=== PATIENT | female | born 1975 | race Asian ===

== ENCOUNTER 2020-10-03 10:59 | Outpatient (REF) | payer OTHER, MEDICAID, SELFPAY ==
[2020-10-03 14:00] LABS: MANUAL DIFF FLAG NO
[2020-10-03 14:19] LABS: Basophils Absolute Auto 0.1 X10*3/uL (0.0-0.2); Basophils Percent Auto 1.1 % (0-2); Eosinophils Absolute Auto 0.5 X10*3/uL (0.0-0.4); Eosinophils Percent Auto 9.8 % (0-4); Hematocrit 42.2 % (37-47); Hemoglobin 14.1 g/dl (12.0-16.0); Imm Gran Abs Auto 0.01 X10*3/uL (0.00-0.03); Imm Gran Pct Auto 0.2 % (0.0-0.4); Lymphocytes Absolute Auto 1.7 X10*3/uL (1.2-4.9); Lymphocytes Percent Auto 31.2 % (20-40); Mean Corpuscular HGB Conc 33.4 g/dl (31.0-35.0); Mean Corpuscular Hemoglobin 30.1 pg (27.0-33.0); Mean Platelet Volume 10.4 fL (9.4-12.3); Monocytes Absolute Auto 0.3 X10*3/uL (0.1-1.2); Monocytes Percent Auto 5.3 % (2-11); Neutrophils Absolute Auto 2.9 X10*3/uL (2.0-8.3); Neutrophils Percent Auto 52.4 % (45-73); Platelet Count 229 X10*3/uL (160-400); Red Blood Count 4.69 X10*6/uL (4.20-5.50); Red Cell Distribution Width 11.9 % (11.0-16.0); White Blood Count 5.5 X10*3/uL (4.8-10.8)
[2020-10-03 14:23] LABS: Alanine Aminotransferase 10 U/L (0-31); Anion Gap 11 (12-20); Aspartate Amino Transferase 13 U/L (5-31); Blood Urea Nitrogen 8 mg/dL (9-16); Carbon Dioxide 26 mmol/L (22-29); Chloride 105 mmol/L (96-108); Cholesterol 217 mg/dL; Estimated Glomerular Filt Rate > 60; Glucose Fasting 89 mg/dL (60-99); HDL Cholesterol 62 mg/dL; LDL Cholesterol Calculated 125 mg/dl; Potassium 4.3 mmol/L (3.3-5.1); Sodium 138 mmol/L (135-145); Triglycerides 153 mg/dL
[2020-10-03 14:44] LABS: Vitamin D 25-OH Total 14.7 ng/mL (>30)
== END 2020-10-03 11:00 | disposition home or self-care (01) ==
LOC: HO.HMGCLDS 10:59
PROVIDERS: PCP Internal Medicine; Visit Provider Internal Medicine
DX: Z00.01 Encounter for general adult medical examination with abnormal findings (principal); I10 Essential (primary) hypertension; R53.83 Other fatigue; N94.6 Dysmenorrhea, unspecified
CPT/HCPCS: 36415; 80048; 80061; 82306; 84443; 84450; 84460; 85025

== ENCOUNTER 2020-11-22 14:41 | Outpatient (REF) | payer OTHER, MEDICAID, SELFPAY ==
--- NOTE | ~2020-11-22 | MM_ITS ---
EXAMINATION: MM SCREENING DIGITAL BREAST TOMOSYNTHESIS, BILATERAL CLINICAL INFORMATION: Screening. Asymptomatic. The lifetime risk of breast cancer based on the Tyrer-Cuzick Model is 11%. COMPARISON: Mammography: 11/17/2017 TECHNIQUE: Digital breast tomosynthesis is performed in both the craniocaudal and mediolateral oblique views along with computer-aided detection (CAD). Synthesized 2D images are generated from the tomosynthesis. Additional views are provided: Bilateral CC. FINDINGS: The breasts are heterogeneously dense, which may obscure small masses (ACR BI-RADS breast composition Category c). There are no significant masses, abnormal calcifications, or other abnormalities. Parenchymal pattern is similar to prior study. The axilla and skin contours are unremarkable. MM/MM tomosynthesis screening BI IMPRESSION: No mammographic evidence of malignancy. ASSESSMENT: BI-RADS 1: Negative RECOMMENDATION: Routine annual mammography screening. This patient's information was entered into a reminder system with a target due date for their next mammogram.
== END 2020-11-22 14:42 | disposition home or self-care (01) ==
LOC: HO.MAMMO 14:41
PROVIDERS: Visit Provider Internal Medicine
DX: Z12.31 Encounter for screening mammogram for malignant neoplasm of breast (principal)
CPT/HCPCS: 77063; 77067

== ENCOUNTER 2021-11-23 15:17 | Outpatient (REF) | payer OTHER, MEDICAID, SELFPAY ==
--- NOTE | ~2021-11-23 | MM_ITS ---
EXAMINATION: MM SCREENING DIGITAL BREAST TOMOSYNTHESIS, BILATERAL CLINICAL INFORMATION: Screening. Asymptomatic. The lifetime risk of breast cancer based on the Tyrer-Cuzick Model is 11%. COMPARISON: Mammography: 11/22/2020, 11/05/2017 TECHNIQUE: Digital breast tomosynthesis is performed in both the craniocaudal and mediolateral oblique views along with computer-aided detection (CAD). Synthesized 2D images are generated from the tomosynthesis. FINDINGS: The breasts are heterogeneously dense, which may obscure small masses (ACR BI-RADS breast composition Category c). Breast tissue composition borders on average fibroglandular. Parenchymal pattern is similar to prior studies. No developing density or architectural abnormality. There are no significant masses, abnormal calcifications, or other abnormalities. The axilla and skin contours are unremarkable. MM/MM tomosynthesis screening BI IMPRESSION: No mammographic evidence of malignancy. ASSESSMENT: BI-RADS 1: Negative RECOMMENDATION: Routine annual mammography screening. This patient's information was entered into a reminder system with a target due date for their next mammogram.
== END 2021-11-23 15:18 | disposition home or self-care (01) ==
LOC: HO.MAMMO 15:17
PROVIDERS: Visit Provider Internal Medicine
DX: Z12.31 Encounter for screening mammogram for malignant neoplasm of breast (principal)
CPT/HCPCS: 77063; 77067

== ENCOUNTER 2021-12-07 07:47 | Outpatient (REF) | payer OTHER, MEDICAID, SELFPAY ==
[2021-12-07 11:28] LABS: MANUAL DIFF FLAG NO
[2021-12-07 11:47] LABS: Basophils Absolute Auto 0.1 X10*3/uL (0.0-0.2); Basophils Percent Auto 1.1 % (0-2); Eosinophils Absolute Auto 0.7 X10*3/uL (0.0-0.4); Eosinophils Percent Auto 12.7 % (0-4); Hematocrit 43.8 % (37.0-47.0); Hemoglobin 14.7 g/dl (12.0-16.0); Imm Gran Abs Auto 0.01 X10*3/uL (0.00-0.03); Imm Gran Pct Auto 0.2 % (0.0-0.4); Lymphocytes Absolute Auto 1.8 X10*3/uL (1.2-4.9); Lymphocytes Percent Auto 32.1 % (20-40); Mean Corpuscular HGB Conc 33.6 g/dl (31.0-35.0); Mean Corpuscular Hemoglobin 29.6 pg (27.0-33.0); Mean Corpuscular Volume 88.1 fL (80.0-98.0); Mean Platelet Volume 10.8 fL (9.4-12.3); Monocytes Absolute Auto 0.3 X10*3/uL (0.1-1.2); Neutrophils Absolute Auto 2.7 x10*3/uL (2.0-8.3); Neutrophils Percent Auto 47.9 % (45-73); Platelet Count 232 X10*3/uL (160-400); Red Blood Count 4.97 X10*6/uL (4.20-5.50); Red Cell Distribution Width 12.2 % (11.0-16.0); White Blood Count 5.7 X10*3/uL (4.8-10.8)
[2021-12-07 12:04] LABS: Alanine Aminotransferase 11 U/L (0-31); Anion Gap 13 (12-20); Aspartate Amino Transferase 13 U/L (5-31); Blood Urea Nitrogen 9 mg/dL (9-16); Carbon Dioxide 25 mmol/L (22-29); Chloride 105 mmol/L (96-108); Cholesterol 245 mg/dL; Estimated Glomerular Filt Rate > 60; Glucose Fasting 108 mg/dL (60-99); HDL Cholesterol 65 mg/dL; LDL Cholesterol Calculated 157 mg/dl; Potassium 4.1 mmol/L (3.3-5.1); Sodium 139 mmol/L (135-145); Triglycerides 116 mg/dL
[2021-12-07 12:13] LABS: TSH reflex Free T4 0.67 uIU/mL (0.32-4.0)
[2021-12-07 12:34] LABS: Folate 9.2 ng/mL (> or = 4.0); Vitamin B12 294 pg/mL (200-900)
== END 2021-12-07 07:48 | disposition home or self-care (01) ==
LOC: HO.HMGCLDS 07:47
PROVIDERS: PCP Internal Medicine; Visit Provider Internal Medicine
DX: Z00.01 Encounter for general adult medical examination with abnormal findings (principal); N94.6 Dysmenorrhea, unspecified; R53.83 Other fatigue; G47.00 Insomnia, unspecified
CPT/HCPCS: 36415; 80048; 80061; 82607; 82746; 84443; 84450; 84460; 85025

== ENCOUNTER 2021-12-20 09:33 | Outpatient (REF) | payer OTHER, MEDICAID, SELFPAY ==
--- NOTE | ~2021-12-20 | CT_ITS ---
EXAMINATION: CT ANGIOGRAM NECK CLINICAL INFORMATION: 46-year-old with headaches, unspecified. COMPARISON: None TECHNIQUE: Following the test bolus administration of a small volume of Omnipaque 350 contrast material, volumetric CT angiography of the head and neck was obtained following the bolus intravenous administration of 70 mL of Omnipaque 350 contrast material via power injector. 2-D multiplanar and 3D MIP reconstructions were performed on the CT scanner console. The degree of stenosis determined by NASCET criteria. This CT examination was performed using dose optimization techniques as appropriate, variously including the following: *Automated exposure control *Adjustment of mA and/or kV according to patient size (this includes techniques or standardized protocols for targeted exams where dose is matched to indication/reason for exam; i.e. extremities or head) *Use of iterative reconstruction technique DLP: 2324 mGy-cm FINDINGS: BRAIN PARENCHYMAL IMAGES: Precontrast and postcontrast images demonstrate that the brain is normal in morphology and attenuation. Jasmine-white matter differentiation is well maintained. No evidence for intracranial hemorrhage, extra-axial fluid collection, space-occupying process, mass effect, mass lesion, or pathologic intracranial enhancement. The ventricular system and subarachnoid spaces are within normal limits without hydrocephalus. The bony structures are intact. There is moderate mucosal thickening in the ethmoid complex and mild mucosal thickening in the visualized maxillary sinuses. There is opacification of the visualized major dural venous sinuses. NONVASCULAR NECK IMAGES: Limited assessment. Grossly unremarkable appearance to the visualized soft tissue neck. The visualized upper thorax is grossly unremarkable within the limitations of the exam. SKELETAL STRUCTURES: There is lordotic reversal centered at C4-C5 which is nonspecific but could be secondary to muscle spasm. Otherwise, skeletal structures appear grossly intact. ANGIOGRAPHIC FINDINGS: There is a normal three-vessel arch configuration. The visualized thoracic aortic arch is patent and normal in caliber. The brachiocephalic vessels are patent and normal in caliber within the limitations of the study with some streak and beam hardening artifact partially obscuring this region. The proximal subclavian arteries are patent and normal in caliber. There is normal caliber to the origins of both vertebral arteries, with the right being slightly dominant. The common carotid arteries are patent and normal in caliber with smoothly contoured carotid bifurcations bilaterally, with no significant plaque identified. The cervical ICAs and ECAs bilaterally are patent and normal in caliber. The cervical vertebral arteries are patent and normal in caliber. The intracranial ICAs are patent and normal in caliber. The A1 and A2 segments are patent and normal in caliber with normal caliber M1 and M2 segments. Normal appearance to the MCA bifurcations. The anterior communicating artery is not well visualized. The posterior communicating arteries are not clearly visualized. The intradural vertebral arteries are patent with the right being slightly dominant. The basilar artery is normal in caliber with a normal appearance to the superior cerebellar and posterior cerebral arteries. No intracranial aneurysms or high flow vascular malformations are identified. CT/CT angio head neck IMPRESSION: 1. Unremarkable CT of the brain without and with contrast. 2. Normal CT angiogram of the head and neck within the limitations of the exam. (Evaluation of intracranial vasculature was somewhat degraded by venous contamination).
[2021-12-20] MEDS: iohexoL 350 MG/ML 100 ML INFUS..BTL IV (10:40)
== END 2021-12-20 09:34 | disposition home or self-care (01) ==
LOC: HO.CT 09:33
PROVIDERS: PCP Internal Medicine; Visit Provider Internal Medicine
DX: R51.9 Headache, unspecified (principal); Z82.49 Family history of ischemic heart disease and other diseases of the circulatory system
CPT/HCPCS: 70496; 70498; Q9967

== ENCOUNTER 2022-11-26 09:32 | Outpatient (REF) | payer OTHER, MEDICAID, SELFPAY ==
--- NOTE | ~2022-11-26 | MM_ITS ---
EXAMINATION: MM SCREENING DIGITAL BREAST TOMOSYNTHESIS, BILATERAL WITH BREAST IMPLANTS. CLINICAL INFORMATION: Screening. Asymptomatic. COMPARISON: Mammography: This study is compared with prior exams dating back to 2018. TECHNIQUE: Digital mammography is performed in craniocaudal and mediolateral oblique views along with computer-aided detection (CAD). Digital breast tomosynthesis is performed in implant-displaced craniocaudal and implant-displaced mediolateral oblique views along with computer-aided detection (CAD). Synthesized 2D images are generated from the tomosynthesis. FINDINGS: The breasts are heterogeneously dense, which may obscure small masses (ACR BI-RADS breast composition Category c). There are bilateral, mammographically intact, retropectoral silicone breast implants. The There are no significant masses, abnormal calcifications, or other abnormalities. MM/MM tomosynthesis screen imp BI IMPRESSION: There are no significant changes from prior study. ASSESSMENT: BI-RADS BI-RADS 1 - Negative RECOMMENDATION: Routine annual mammography screening. 1 year F/U This patient's information was entered into a reminder system with a target due date for their next mammogram.
== END 2022-11-26 09:33 | disposition home or self-care (01) ==
LOC: HO.MAMMO 09:32
PROVIDERS: Visit Provider Internal Medicine
DX: Z12.31 Encounter for screening mammogram for malignant neoplasm of breast (principal)
CPT/HCPCS: 77063; 77067

== ENCOUNTER → 2022-11-26 10:00 | Outpatient (BNV) | payer OTHER, MEDICAID, SELFPAY | PROVIDERS: Visit Provider Radiology Diagnostic Radiology | DX: Z12.31 Encounter for screening mammogram for malignant neoplasm of breast (principal) | CPT/HCPCS: 77063; 77067 ==

== ENCOUNTER 2023-03-11 07:48 | Outpatient (AMB) | payer OTHER, MEDICAID, SELFPAY ==
--- NOTE | 2023-03-11 07:59 | A.OFFPC_ITS ---
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 She now complains of pain over the dorsal aspect of left forearm and left hand, with pain on supination of the left forearm, has difficulty with wrist flexion on left due to pain. 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 She was changing her patient's underwear when he started pulling on her left forearm and twisting her left wrist. She now complains of pain over the dorsal aspect of left forearm and left hand, with pain on supination of the left forearm, has difficulty with wrist flexion on left due to pain. [facility] [place] Medical History Impaired fasting glucose Dyslipidemia Family history of brain aneurysm Insomnia Dysmenorrhea [place] of toe Surgical History History of lumpectomy of right breast Family History Father HTN (hypertension) Mother Myocardial infarction Other Family history of brain aneurysm Social History Housing: House Alcohol intake: never Patient Tobacco Use Status: Current everyday Tobacco user Tobacco use type: Cigarette Cigarettes Per Day: 6 Years Smoked: 7 Packs per year/per ci.10 e-Cigarette/Vaping Use: Never Used Second Hand Smoke Exposure: No service: No Current occupational status: employed Cognitive needs: No Hearing needs: No Vision needs: No Questionnaire Thrive Questionnaire Date Thrive assessed: 12/12/21 MARGARET-7 AMB Questionnaire MARGARET-7 Date MARGARET - 7 assessed: 12/12/21 Source: Developed by Drs. Nabil Galvin, Jacquie Ruiz, Ramesh Oswald and colleagues, with an educational vy from [employer]. Review of Systems Const All systems reviewed & are unremarkable except as noted in HPI and below Physical exam (Primary Care) Vital Signs: Last Vital Signs Pulse 64 03/11/23 08:00 BP 118/70 03/11/23 08:00 Pulse Ox 98 03/11/23 08:00 Oxygen Delivery Method Room Air 03/11/23 08:00 BMI result Body Mass Index 23.5 Tobacco/Smoking Status: Tobacco use Status Tobacco use date assessed 03/11/23 03/11/23 08:07 Patient Tobacco Use Status Current everyday Tobacco 03/11/23 08:07 Tobacco use type Cigarette 03/11/23 07:59 e-Cigarette/Vaping Use Never Used 03/11/23 07:59 Thrive Assessment: Date of Thrive Assessment Date Thrive assessed 12/12/21 03/11/23 07:59 Const General: comfortable, no acute distress, alert and awake Neck Neck: Yes full ROM and Yes no lymphadenopathy Resp Auscultation: clear to auscultation bilaterally Cardio Rate: regular rate Rhythm: regular rhythm Heart sounds: S1 normal heart sound present and S2 normal heart sound present Skin General skin exam: no rashes or lesions noted Extrem Other: Positive Phalen's sign on left, tenderness on palpation over left wrist joint and over lower aspect of left forearm just above the wrist, pain elicited on supination of at left forearm, slight swelling noted over dorsal aspect of left wrist and left forearm, patient unable to flex left hand at wrist due to pain Assessment and Plan Assessment & Plan (1) Acute pain of left wrist: Code(s): M25.532 - Pain in left wrist (2) Hx of recent trauma: Code(s): Z87.828 - Personal history of other (healed) physical injury and trauma Plan X-ray of left wrist ordered, description sent for ibuprofen for 600 mg to take 1 every 8 hours with food as needed for pain. Advised to rest joint, FMLA form completed, patient was advised to rest, apply Salonpas patch to affected area every 8 hours as needed. may return to work on March 17, 2023 Orders: Orders XR wrist LT min 3V Today M25.532 - Pain in left wrist, Z87.828 - Personal history of other (healed) physical injury and trauma Medications: New ibuprofen 600 mg PO Q8H PRN 30 tabs 0RF pain in wrist Coding Level of Care Code Est Pt Level 3 (80578) Diagnoses Acute pain of left wrist M25.532 Hx of recent trauma Z87.828
[2023-03-11 08:00] VITALS: BP 118/70; PULSE 64; O2SAT 98; BMI 23.5
== END 2023-03-11 11:08 | disposition home or self-care (01) ==
PROVIDERS: Visit Provider Internal Medicine
DX: M25.532 Pain in left wrist (principal); Z87.828 Personal history of other (healed) physical injury and trauma
CPT/HCPCS: 99213

== ENCOUNTER 2023-03-11 12:08 | Outpatient (REF) | payer OTHER, MEDICAID, SELFPAY ==
--- NOTE | ~2023-03-11 | XR_ITS ---
EXAMINATION: XR WRIST, LEFT CLINICAL INFORMATION: Left wrist pain COMPARISON: None available. TECHNIQUE: PA, lateral, navicular and oblique views of the left wrist. FINDINGS: The bones and soft tissues are normal. No fracture. Alignment is anatomic with normal joint spaces. No erosions or abnormal soft tissue calcifications. XR/XR wrist LT min 3V IMPRESSION: Unremarkable plain radiographs of the left wrist.
== END 2023-03-11 12:09 | disposition home or self-care (01) ==
LOC: HO.HMGCX 12:08
PROVIDERS: PCP Internal Medicine; Visit Provider Internal Medicine
DX: M25.532 Pain in left wrist (principal); Z87.828 Personal history of other (healed) physical injury and trauma
CPT/HCPCS: 73110

== ENCOUNTER 2023-06-12 11:26 | Outpatient (AMB) | payer OTHER, MEDICAID, SELFPAY ==
--- NOTE | 2023-06-12 11:38 | MHC.PC.OV ---
Vital Signs 06/12/23 11:54 Height 5 ft 3 in Weight 130 lb BMI 23.0 BP 102/70 Blood Pressure Location Lt brachial Position Sitting Pulse 88 Pulse Source Pulse Oximeter Pulse Oximetry (%) 99 Oxygen Delivery Method Room Air Intake Visit Reasons: WC/FMLA Intake Note: Pt is here today to discuss W/C - FMLA Allergies No Known Allergies Allergy (Verified 06/12/23 16:18) Medication List - Last Reconciled 06/12/23 by Yoselin Sarmiento MD ibuprofen 600 mg PO Q8H PRN Tobacco use date assessed: 06/12/23 Dental Screening Dental Screen Date: 06/12/23 HPI WC/FMLA HPI Details 48-year-old lady here today to have an FMLA completed. 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 No fracture or bony malalignment seen on x-ray of wrist. Patient states that the pain in her left wrist has started to resolve, however, she still experiences pain when she lifts anything heavy or does any pushing or pulling motion with her left hand. She has been massaging Voltaren gel as needed and wrapping her left wrist with an Johnnie wrap while at work, which has been helping. [facility] Medical History Left wrist sprain Impaired fasting glucose Dyslipidemia Family history of brain aneurysm Insomnia Dysmenorrhea [place] of toe Surgical History History of lumpectomy of right breast Family History Father HTN (hypertension) Mother Myocardial infarction Other Family history of brain aneurysm Social History Housing: House Alcohol intake: never Patient Tobacco Use Status: Current everyday Tobacco user Tobacco use type: Cigarette Cigarettes Per Day: 6 Years Smoked: 7 e-Cigarette/Vaping Use: Never Used Second Hand Smoke Exposure: No service: No Current occupational status: employed Cognitive needs: No Hearing needs: No Vision needs: No Questionnaire Thrive Questionnaire Date Thrive assessed: 12/12/21 MARGARET-7 AMB Questionnaire MARGARET-7 Date MARGARET - 7 assessed: 12/12/21 Source: Developed by DrsOliver Galvin, Jacquie Ruiz, Ramesh Oswald and colleagues, with an educational vy from [employer]. Review of Systems Const All systems reviewed & are unremarkable except as noted in HPI and below Physical exam (Primary Care) Vital Signs: Last Vital Signs Pulse 88 06/12/23 11:54 BP 102/70 06/12/23 11:54 Pulse Ox 99 06/12/23 11:54 Oxygen Delivery Method Room Air 06/12/23 11:54 BMI result Body Mass Index 23.0 Tobacco/Smoking Status: Tobacco use Status Tobacco use date assessed 06/12/23 06/12/23 11:41 Patient Tobacco Use Status Current everyday Tobacco 06/12/23 11:39 Tobacco use type Cigarette 06/12/23 11:39 e-Cigarette/Vaping Use Never Used 06/12/23 11:39 Thrive Assessment: Date of Thrive Assessment Date Thrive assessed 12/12/21 06/12/23 11:39 Const General: comfortable, no acute distress, alert and awake Neck Neck: Yes full ROM and Yes no lymphadenopathy Skin General skin exam: no rashes or lesions noted Extrem Other: Some tenderness on palpation over dorsal lateral aspect of left wrist joint Assessment and Plan Assessment & Plan (1) Left wrist sprain: Code(s): S63.502A - Unspecified sprain of left wrist, initial encounter Qualifiers: Encounter type: subsequent encounter Qualified Code(s): S63.502D - Unspecified sprain of left wrist, subsequent encounter Plan: May continue massaging diclofenac gel and using an Johnnie wrap for added support to her left wrist, referred for physical therapy. FMLA form completed, placed on some restrictions with no carrying more than 10 lb with her left hand and restriction is for another 6 weeks. Orders: Orders PT Evaluation and Treatment Today S63.502A - Unspecified sprain of left wrist, initial encounter Coding Level of Care Code Est Pt Level 3 (80203) Diagnoses Sprain of left wrist, subsequent encounter S63.502D Encounter type: subsequent encounter
[2023-06-12 11:54] VITALS: BP 102/70; PULSE 88; O2SAT 99; BMI 23.0
== END 2023-06-12 15:12 | disposition home or self-care (01) ==
PROVIDERS: PCP Internal Medicine; Visit Provider Internal Medicine
DX: S63.502D Unspecified sprain of left wrist, subsequent encounter (principal); Z04.2 Encounter for examination and observation following work accident
CPT/HCPCS: 99213

== ENCOUNTER → 2023-06-20 13:07 | Outpatient (BNVA) | payer OTHER, SELFPAY | PROVIDERS: PCP Internal Medicine; Visit Provider Physician Assistant | DX: S63.501D Unspecified sprain of right wrist, subsequent encounter (principal); X50.0XXD Overexertion from strenuous movement or load, subsequent encounter | CPT/HCPCS: 73200; 99204 ==

== ENCOUNTER → 2023-07-03 10:05 | Outpatient (BNVA) | payer OTHER, SELFPAY | PROVIDERS: PCP Internal Medicine; Visit Provider Physician Assistant | DX: S63.502D Unspecified sprain of left wrist, subsequent encounter (principal); X58.XXXD Exposure to other specified factors, subsequent encounter | CPT/HCPCS: 99213 ==

== ENCOUNTER 2023-07-09 13:00 | Outpatient (RCR) | payer OTHER, MEDICAID, SELFPAY ==
--- NOTE | 2023-06-18 15:03 | MHC.OT.EP ---
[address] [phone] Occupational Therapy Plan of Care Patient Name: Apurva Patel Date of Evaluation: 06/18/23 Diagnosis: L WRIST PAIN Pain Location: 5-6/10 AT REST 8-9/10 WITH USE DORSAL WRIST AND FOREARM Pain Score: 5-9/10 Pain Scale Used: Numeric (0 - 10) Aggravating Factors: L WRIST FLEXION, DEVIATION, PRONATION, LIFTING/ CARRYING >5 POUNDS Alleviating Factors: ICING, TYLENOL AND VOLTAREN GEL NEEDED Assessment: MS PATEL REPORTS L WRIST INJURY OCCURRED IN JANUARY OF 2023. 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 SHE REPORTS INCREASED PAIN WITH RESISTED PRONATION AND DORSAL WRIST PAIN WITH PALPATION. HER WRIST FLEXION IS LIMITED, WELL HER ENROLLED AGENT STRENGTH. AN 85% LIMITATION IS REPORTED PER THE QUICK DASH ASSESSMENT. ONGOING SKILLED OT IS WARRANTED TO ADDRESS THE AREAS MENTIONED BELOW AND CONSIDER CUSTOM WRIST ORTHOSIS FABRICATION. Frequency and Duration: The patient will be seen 3X/WEEK FOR 4 WEEKS Short Term Goals: IND HEP IND JT PROTECTION AND ACTIVITY MODIFICATION IND USE OF HEAT/ICE REPORT <2/10 PAIN AT REST Longterm Goals: DEMO LIFT AND CARRY OF >10 POUNDS WITH <4/10 PAIN L GROSS GRASP >40 POUNDS IND SELF TAPING STRATEGIES QUICK DASH <40% Treatment Plan: Therapeutic Exercise Therapeutic Activity Home Exercise Program Splinting Neuro Re-ed Patient Education Desensitization/Sensory Re-ed Edema Control ADL Training Ultrasound NMES Iontophoresis Paraffin Fluidotherapy MHP Cold Packs Joint Mobilization Soft Tissue Mobilization Kinesiotaping Other (see comments) Electronically Signed By: ASH FERNANDEZ OTR/L Please Sign and return to therapist. Thank you once again for your referral.
--- NOTE | 2023-07-11 07:28 | MHC.OT.DC ---
[address] [phone] F: [phone] Occupational Therapy Discharge Note Patient Name: Apurva Patel Provider: Yoselin Sarmiento Diagnosis: L WRIST PAIN Date of Evaluation: 06/18/23 Date of Discharge: 07/09/23 Treatments to Date: 10 Cancellations to Date: 0 No Shows to Date: 0 Discharge Status: Achieved Goals Improved Function Independent with HEP Discharge Summary: MS PATEL HAS PROGRESSED WELL WITH HER OT RX SESSIONS. SHE HAS DECREASED HER PAIN, IMPROVED HER FUNCTIONAL ABILITIES. NOW IND WITH HER HEP, INCLUDING ISOMETRIC EXERCISES. Pt HAS MET HER STG/LTGs AND READY FOR TRANSITION TO A HOME BASED PROGRAM WITH ONGOING JT PROTECTION STRATEGIES WARRANTED. D/C OT SERVICES . Electronically Signed By: KARLY MELVIN/Pooja Reviewed/agree with student documentation: N/A Therapist: Please Sign and return to therapist, thank you for your referral.
== END 2023-07-09 15:00 | disposition home or self-care (01) ==
LOC: HO.OT 13:00
PROVIDERS: PCP Internal Medicine; Visit Provider Internal Medicine
DX: S63.502D Unspecified sprain of left wrist, subsequent encounter (principal)
CPT/HCPCS: 97033; 97110; 97167

== ENCOUNTER → 2023-07-11 10:40 | Outpatient (BNVA) | payer OTHER, SELFPAY | PROVIDERS: PCP Internal Medicine; Visit Provider Physician Assistant | DX: M25.532 Pain in left wrist (principal) | CPT/HCPCS: 99213 ==

== ENCOUNTER 2023-11-10 08:07 | Outpatient (AMB) | payer OTHER, MEDICAID, SELFPAY ==
--- NOTE | 2023-11-10 08:07 | AM.OFFWIN_ITS ---
Intake Vital Signs 11/10/23 08:10 Weight 128 lb BP 108/72 Blood Pressure Location Rt brachial Position Sitting Pulse 77 Pulse Source Pulse Oximeter Pulse Oximetry (%) 97 Oxygen Delivery Method Room Air Intake Visit Reasons: Left ear pain Intake Note: Patient here for left ear pain and itchiness which has been going on for some time now. Patient Tobacco Use Status: Current everyday Tobacco user Allergies No Known Allergies Allergy (Verified 11/10/23 08:11) Do you need a note to return to daycare/school/sports/work: No HPI HPI Comments History of Present Illness Details Patient is a 48-year-old female complaining of left-sided ear itchiness and feeling like ?there is a heartbeat in my ear?. She denies any ear pain, fevers or change in hearing. She denies any pain in her face or on the bone behind her ear. [facility] Medical History Left wrist sprain Impaired fasting glucose Dyslipidemia Family history of brain aneurysm Insomnia Dysmenorrhea [place] of toe Surgical History History of lumpectomy of right breast Family History Father HTN (hypertension) Mother Myocardial infarction Other Family history of brain aneurysm Social History Housing: House Alcohol intake: never Patient Tobacco Use Status: Current everyday Tobacco user Tobacco use type: Cigarette Cigarettes Per Day: 6 Years Smoked: 7 e-Cigarette/Vaping Use: Never Used Second Hand Smoke Exposure: No service: No Current occupational status: employed Cognitive needs: No Hearing needs: No Vision needs: No Review of Systems Const All systems reviewed & are unremarkable except as noted in HPI and below Physical Exam Vital Signs: Last Vital Signs Pulse 77 11/10/23 08:10 BP 108/72 11/10/23 08:10 Pulse Ox 97 11/10/23 08:10 Oxygen Delivery Method Room Air 11/10/23 08:10 Const General: cooperative, healthy appearing, comfortable and no acute distress Orientation/consciousness: patient oriented x3 HEENT Head: Yes normal to inspection Ears: TM's normal bilaterally, mastoids normal and Abnormal EAC present (bilateral) erythema, edema and EAC tenderness General nose exam: Normal external nose present Face and sinus: Yes normal facial exam Resp Effort & Inspection: normal respiratory effort and able to speak in complete sentences Neuro General: patient oriented x3 Assessment & Plan Assessment & Plan (1) Otitis externa: Code(s): H60.90 - Unspecified otitis externa, unspecified ear Qualifiers: Otitis externa type: swimmer's ear Chronicity: acute Laterality: bilateral Qualified Code(s): H60.333 - Swimmer's ear, bilateral Plan: Sent drops to pharmacy. Plan See above Medications: New [id number] 3.5-10,000-1 mg/mL-unit/mL-% 4 drps otic (ears) Q8H 7 days 10 mL 0RF Coding Level of Care Code Est Pt Level 3 (55449) Diagnoses Acute swimmer's ear of both sides H60.333 Otitis externa type: swimmer's ear Chronicity: acute Laterality: bilateral
[2023-11-10 08:10] VITALS: BP 108/72; PULSE 77; O2SAT 97
== END 2023-11-10 08:28 | disposition home or self-care (01) ==
PROVIDERS: PCP Internal Medicine; Visit Provider Physician Assistant
DX: H60.333 Swimmer's ear, bilateral (principal)
CPT/HCPCS: 99213

== ENCOUNTER 2023-11-28 10:04 | Outpatient (REF) | payer OTHER, MEDICAID, SELFPAY ==
--- NOTE | ~2023-11-28 | MM_ITS ---
EXAMINATION: MM SCREENING DIGITAL BREAST TOMOSYNTHESIS, BILATERAL CLINICAL INFORMATION: Screening. Asymptomatic. COMPARISON: Mammography: Comparison is made with available prior examinations. TECHNIQUE: Digital mammography is performed in craniocaudal and mediolateral oblique views along with computer-aided detection (CAD). Digital breast tomosynthesis is performed in implant-displaced craniocaudal and implant-displaced mediolateral oblique views along with computer-aided detection (CAD). Synthesized 2D images are generated from the tomosynthesis. FINDINGS: The breasts are heterogeneously dense, which may obscure small masses (ACR BI-RADS breast composition Category c). Bilateral retropectoral silicone implants are normal.. There are no significant masses, abnormal calcifications, or other abnormalities. MM/MM tomosynthesis screen imp BI IMPRESSION: There are no significant changes from prior study. ASSESSMENT: BI-RADS BI-RADS 2 - Benign Findings RECOMMENDATION: Routine annual mammography screening. 1 year F/U This patient's information was entered into a reminder system with a target due date for their next mammogram. Electronically signed by: Ophelia De Souza DO 12/19/2023 10:42 PM EDT
== END 2023-11-28 10:05 | disposition home or self-care (01) ==
LOC: HO.MAMMO 10:04
PROVIDERS: PCP Internal Medicine; Visit Provider Internal Medicine
DX: Z12.31 Encounter for screening mammogram for malignant neoplasm of breast (principal)
CPT/HCPCS: 77063; 77067

== ENCOUNTER → 2023-11-28 10:15 | Outpatient (BNV) | payer OTHER, MEDICAID, SELFPAY | PROVIDERS: PCP Internal Medicine; Visit Provider Internal Medicine | DX: Z12.31 Encounter for screening mammogram for malignant neoplasm of breast (principal) | CPT/HCPCS: 77063; 77067 ==

== ENCOUNTER 2024-01-21 09:11 | Outpatient (AMB) | payer OTHER, MEDICAID, SELFPAY ==
[2024-01-21 09:34] VITALS: BP 110/80; PULSE 84; O2SAT 100; BMI 22.8
--- NOTE | 2024-01-21 09:34 | A.OFFPC_ITS ---
Vital Signs 01/21/24 09:34 Height 5 ft 3 in Weight 129 lb BMI 22.8 BP 110/80 Blood Pressure Location Lt brachial Position Sitting Pulse 84 Pulse Source Pulse Oximeter Pulse Oximetry (%) 100 Oxygen Delivery Method Room Air Intake Visit Reasons: Annual PE Intake Note: Pt is here today for her PE: last mammogram 11/28/23 Allergies No Known Allergies Allergy (Verified 01/21/24 09:55) Medication List - Last Reconciled 01/21/24 by Yoselin Sarmiento MD No Known Home Meds Tobacco use date assessed: 01/21/24 Dental Screening Dental Screen Date: 01/21/24 Did you have a dental visit in the last 12 months?: No Did you have a dental problem in the last 6 months where you did not have access to dental care?: No Was dental information given to patient?: Patient has dentist HPI Annual PE HPI Details 48-year-old lady with dyslipidemia, impa ired fasting glucose, and dysmenorrhea, here today for physical exam. She sees Dr. Chauhan for her routine Pap and pelvic exam, las done per patient earlier this year , copy of result requested. He is up-to-date with her screening mammogram done 11/28/2023 with benign findings. [facility] Medical History (Updated 01/21/24 @ 10:20 by Yoselin Sarmiento MD) Smoker unmotivated to quit Impaired fasting glucose Dyslipidemia Family history of brain aneurysm Insomnia Dysmenorrhea Letha of toe Surgical History History of lumpectomy of right breast Family History Father HTN (hypertension) Mother Myocardial infarction Other Family history of brain aneurysm Social History Housing: House Alcohol intake: never Patient Tobacco Use Status: Current everyday Tobacco user Tobacco use type: Cigarette Cigarettes Per Day: 6 Years Smoked: 7 e-Cigarette/Vaping Use: Never Used Second Hand Smoke Exposure: No service: No Current occupational status: employed Cognitive needs: No Hearing needs: No Vision needs: No Female Reproductive History Menstrual Other: Sees Dr. Chauhan her OBGYN Questionnaire PHQ-9 Over the last 2 weeks, how often have you been bothered by any of the following problems? 1. Little interest or pleasure in doing things: not at all 2. Feeling down, depressed, or hopeless: not at all 3. 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 Feeling tired or having little energy: several days 5. Poor appetite or overeating: not at all 6. Feeling bad about yourself - or that you are a failure or have let yourself or your family down: not at all 7. Trouble concentrating on things, such as reading the newspaper or watching television: not at all 8. Moving or speaking so slowly that other people could have noticed. Or the opposite - being so fidgety or restless that you have been moving around a lot more than usual: not at all 9. Thoughts that you would be better off or of hurting yourself in some way: not at all Total score: 2 Depression Screening Interpretation: Negative Depression Screening Done: Yes 86362 - PHQ-9 Billing: Yes Source: Developed by Drs. Nabil Galvin, Jacquie Ruiz, Ramesh Oswald and colleagues, with an educational vy from [employer]. Thrive Questionnaire Date Thrive assessed: 01/18/24 I am a: Patient What is your living situation today?: I choose not to answer this question Within the past 12 months, did the food you bought not last and you didn't have the money to get more?: I choose not to answer this question Within the past 12 months, did you worry whether your food would run out before you got money to buy more?: I choose not to answer this question Do you have trouble paying for medicines?: No Do you have trouble getting transportation to medical appointments?: No Do you have trouble paying your heating and electricity bill?: No Do you have trouble taking care of your child, family member or friend?: No Do you have trouble with day-to-day activities such as bathing, preparing meals, shopping, managing finances, etc.?: No Are you currently unemployed and looking for a job?: No Are you interested in more education?: No Please select the resources that you would like help with: None Currently or been in a relationship where the following occur: I choose not to answer THRIVE Score: 0 AUDIT C Alcohol Use Questionnaire (AUDIT-C) 1. How often do you have a drink containing alcohol?: Monthly or less 2. How many drinks containing alcohol do you have on a typical day when you are drinking?: 1 or 2 3. How often do you have six or more drinks on one occasion?: Monthly Total Score: 3 MARGARET-7 AMB Questionnaire MARGARET-7 Date MARGARET - 7 assessed: 12/12/21 Feeling nervous, anxious, or on edge: 0 = Not at all Not being able to stop or control worryin = Not at all Worrying too much about different things: 0 = Not at all Trouble relaxin = Not at all Being so restless that it is hard to sit still: 0 = Not at all Becoming easily annoyed or irritable: 0 = Not at all Feeling afraid as if something awful might happen: 0 = Not at all Total MARGARET-7 score (0-4 normal; 5-9 mild; 10-14 moderate; 15-21 severe): 0 Source: Developed by Drs. Nabil Galvin, Jacquie Ruiz, Ramesh Oswald and colleagues, with an educational vy from [employer]. MARGARET-7 Assessment Billing MARGARET-7 Assessment Tool: MARGARET-7 Assessment 58860 Review of Systems Const Denies body aches, Denies fever(s), Denies lethargy, Denies poor appetite and Denies weakness Eyes Denies change in vision ENT Denies dysphagia, Denies vertigo, Denies ear discharge, Denies otalgia and Denies facial pain Card Reports no additional complaints Resp Reports no additional complaints GI Denies change in bowel habits, Denies dysphagia, Denies dyspepsia and Denies heartburn Denies urinary frequency, Denies difficulty voiding, Denies dysuria, Denies urinary incontinence and Denies vaginal discharge Musc Denies arthralgias, Denies joint swelling, Denies numbness and Reports stiffness Skin/Breast Denies rash Neuro Denies vertigo, Denies lack of coordination, Denies focal weakness, Denies numbness and Denies weakness Psych Reports no additional complaints Endo Reports no additional complaints Sudheer/Lymph Denies easy bleeding and Denies easy bruising Aller/Immun Reports no additional complaints Physical exam (Primary Care) Vital Signs: Last Vital Signs Pulse 84 01/21/24 09:34 BP 110/80 01/21/24 09:34 Pulse Ox 100 01/21/24 09:34 Oxygen Delivery Method Room Air 01/21/24 09:34 BMI result Body Mass Index 22.8 Tobacco/Smoking Status: Tobacco use Status Tobacco use date assessed 01/21/24 01/21/24 09:35 Patient Tobacco Use Status Current everyday Tobacco 01/21/24 09:34 Tobacco use type Cigarette 01/21/24 09:34 e-Cigarette/Vaping Use Never Used 01/21/24 09:34 PHQ-9: PHQ-9 Score PHQ-9: Total score 6 01/21/24 10:00 Depression Screening Interpretation: Negative Thrive Assessment: Date of Thrive Assessment Date Thrive assessed 01/18/24 01/21/24 09:34 Currently or been in a relationship where the following occur: I choose not to answer Advance Care Planning discussion: Completed/Scanned Date of discussion: 01/21/24 Who was present: Patient Forms completed: Health Care Proxy Time spent: 16-45 minutes Actual minutes spent: 16 Const Other: Alert oriented x3, no acute distress noted ambulatory with normal gait General: comfortable, no acute distress, alert and awake Nutritional Appearance: average body habitus Orientation/consciousness: patient oriented x3 HENAR Head: Yes normocephalic and Yes atraumatic Face and sinus: Yes sinuses nontender and Yes face symmetric Eyes General: appearance normal, both eyes and all related structures Neck Neck: Yes full ROM, Yes no lymphadenopathy and Yes no meningeal signs Chest Chest palpation & inspection: normal inspection of the chest Breast/axilla palpation: normal palpation of the breasts Resp Auscultation: clear to auscultation bilaterally Cardio Other: S1-S2 present regular rate and rhythm Bruits: no abdominal aortic bruits GI Palpation (GI): No Abdominal aortic bruit present, Soft to palpation, Tenderness to palpation present (GI) in the LLQ, no guarding, hepatosplenomegaly present and no masses General: Yes deferred (Sees Dr. Chauhan her OBGYN who completed her Pap this year) Back/Spine/Pelvis Back: No back tenderness Skin General skin exam: no rashes or lesions noted Neuro General: patient oriented x3, gait normal, moves all extremities, Normal light touch and pain sensation, no meningeal signs, no focal motor deficits and CN's II-XI intact bilaterally Extrem General: Yes full ROM, Yes no joint enlargement and Yes no pedal edema Psych Appearance: grossly normal and well kempt Mental Status: mental status grossly normal Speech and movement: Normal speech and movement present Affect: normal affect Attitude: cooperative Thought process: Normal thought process present Coding Level of Care Code Est Pt Prev Care 40-64y(47737) Diagnoses Annual visit for general adult medical examination with abnormal findings Z00.01 Dyslipidemia E78.5 Impaired fasting glucose R73.01 Encounter for screening for malignant neoplasm of colon Z12.11 Smoker unmotivated to quit F17.200 Advanced directives, counseling/discussion Z71.89 Additional Codes Vital Signs *Quality* - Advance Care Planning discussion: Completed/Scanned ([id number]) Vital Signs *Quality* - Time spent: 16-45 minutes ([id number]) MARGARET-7 Assessment Billing - MARGARET-7 Assessment Tool: MARGARET-7 Assessment 62946 ([id number]) Assessment & Plan Assessment & Plan (1) Annual visit for general adult medical examination with abnormal findings: Code(s): Z00.01 - Encounter for general adult medical examination with abnormal findings Category: Medical Plan: Will check appropriate labs. Recommended dental visit every 6 months and regular eye exams, at least every 2 years. Take adequate calcium in diet and vitamin-D 3 at 2000 IU per cap once a day, in addition to weight-bearing exercises to help maintain good muscle tone and weight control. Instructed to do self-breast exam, continue to get yearly mammogram currently up-to-date, up-to-date with her cervical cancer screening and pelvic exam, sees Dr. Chauhan in [place]. Copy of results requested. Referred to [facility] for her initial screening colonoscopy.. Has had COVID vaccines in the past does not want to get booster, flu vaccine was given at work, on 01/20/2024, and up-to-date with Tdap (2) Dyslipidemia: Code(s): E78.5 - Hyperlipidemia, unspecified Category: Medical Plan: Ordered fasting lipid panel to be done, reinforced importance of following a low-cholesterol diet and getting regular exercise (3) Impaired fasting glucose: Code(s): R73.01 - Impaired fasting glucose Category: Medical Plan: Your previous fasting blood sugars were elevated above 100 mg/dL. Impaired glucose metabolism increases the risk for developing diabetes mellitus type 2, as well as heart attack and stroke later on. Lifestyle changes that promotes weight loss, healthy eating habits, and regular exercise are important, and can prevent the progression to diabetes (4) Encounter for screening for malignant neoplasm of colon: Code(s): Z12.11 - Encounter for screening for malignant neoplasm of colon Plan: Referred to [facility] for her initial colonoscopy screening (5) Smoker unmotivated to quit: Code(s): F17.200 - Nicotine dependence, unspecified, uncomplicated Category: Social Hx Plan: Patient strongly advised to stop smoking, as smoking damages blood vessels, degenerative of joints and spine, damage to lungs and heart., predisposes to developing certain cancers like lung, breast, bladder, colon. Recommended to try decreasing cigarette use by 1-2 cigarettes a day. Advised to monitor what triggers are for smoking so that this can be discussed on the next office visit. We can discuss different options to quit smoking when ready. (6) Advanced directives, counseling/discussion: Code(s): Z71.89 - Other specified counseling Plan: Initiated the conversation about Advanced Directives. Advanced Directives help patients prepare for current and future decisions about their medical treatment and place of care. Discussed with patient that it is a process where a patients current condition and prognosis are reviewed, their wishes for information rega rding their illness are elicited, and likely medical dilemmas are presented and options discussed. Healthcare proxy form completed today. The form can be amended as needed, reviewed yearly and make changes as needed Orders: Orders Lipid Panel 01/21/24 E78.5 - Hyperlipidemia, unspecified, R73.01 - Impaired fasting glucose, Z00.01 - Encounter for general adult medical examination with abnormal findings Basic Metabolic Panel Fasting 01/21/24 E78.5 - Hyperlipidemia, unspecified, R73.01 - Impaired fasting glucose, Z00.01 - Encounter for general adult medical examination with abnormal findings Aspartate Amino Transferase 01/21/24 E78.5 - Hyperlipidemia, unspecified, R73.01 - Impaired fasting glucose, Z00.01 - Encounter for general adult medical examination with abnormal findings Alanine Aminotransferase 01/21/24 E78.5 - Hyperlipidemia, unspecified, R73.01 - Impaired fasting glucose, Z00.01 - Encounter for general adult medical examination with abnormal findings Referrals Gastroenterology Referral Z12.11 - Encounter for screening for malignant neoplasm of colon
== END 2024-01-21 10:23 | disposition home or self-care (01) ==
PROVIDERS: PCP Internal Medicine; Visit Provider Internal Medicine
DX: Z00.01 Encounter for general adult medical examination with abnormal findings (principal); E78.5 Hyperlipidemia, unspecified; R73.01 Impaired fasting glucose; Z12.11 Encounter for screening for malignant neoplasm of colon; F17.200 Nicotine dependence, unspecified, uncomplicated; Z71.89 Other specified counseling; Z00.00 Encounter for general adult medical examination without abnormal findings

== ENCOUNTER → 2024-01-21 09:11 | Outpatient (BNVA) | payer OTHER, MEDICAID, SELFPAY | PROVIDERS: PCP Internal Medicine; Visit Provider Internal Medicine | DX: Z00.01 Encounter for general adult medical examination with abnormal findings (principal); E78.5 Hyperlipidemia, unspecified; R73.01 Impaired fasting glucose; F17.210 Nicotine dependence, cigarettes, uncomplicated; Z71.89 Other specified counseling | CPT/HCPCS: 96127 ==

== ENCOUNTER 2024-01-23 07:05 | Outpatient (REF) | payer OTHER, MEDICAID, SELFPAY ==
[2024-01-23 10:33] LABS: Alanine Aminotransferase 18 U/L (0-31); Anion Gap 9 (12-20); Aspartate Amino Transferase 23 U/L (5-31); Blood Urea Nitrogen 11 mg/dL (9-16); Calcium 9.3 mg/dL (8.4-10.2); Carbon Dioxide 28 mmol/L (22-29); Chloride 106 mmol/L (96-108); Cholesterol 250 mg/dL (<200); Estimated Glomerular Filt Rate > 60; Glucose Fasting 99 mg/dL (60-99); HDL Cholesterol 65 mg/dL (>40); LDL Cholesterol Calculated 146 mg/dL (<100); Potassium 4.1 mmol/L (3.3-5.1); Sodium 139 mmol/L (135-145); Triglycerides 196 mg/dL (<150)
== END 2024-01-23 07:06 | disposition home or self-care (01) ==
LOC: HO.HMGCLDS 07:05
PROVIDERS: PCP Internal Medicine; Visit Provider Internal Medicine
DX: Z00.01 Encounter for general adult medical examination with abnormal findings (principal); E78.5 Hyperlipidemia, unspecified; R73.01 Impaired fasting glucose
CPT/HCPCS: 36415; 80048; 80061; 84450; 84460

== ENCOUNTER 2024-07-16 07:41 | Outpatient (AMB) | payer OTHER, MEDICAID, SELFPAY ==
--- OUTSIDE RECORDS SUMMARY | 2024-07-16 07:44 | XMS_ITS | Clinical Summary ---
Author Organization [facility] it Address [address] [place] [address] Care Team Providers Care Gm Video Name Role Phone Unavailable Primary Care Provider Unavailabl e Social History Tobacco Use Types Packs/Day Years Used Date Smoking Tobacco: Never Assessed Comments Unknown Sex and Gender Information Value Date Recorded Sex Assigned at Not on file Legal Sex Female 3:45 PM EST Gender Identity Not on file Sexual Orientation Not on file Plan of Treatment Health Maintenance Due Date Last Done Comments Breast Cancer Screening 1974 DTaP,Tdap,and Td Vaccines (1 - Tdap) 1993 Hepatitis B Vaccines (1 of 3 - 19+ 3-dose series) 1993 Cervical Cancer Screening: P ap Smear 1995 Colorectal Cancer Screening: Colonoscopy 02/27/2022 HIV Screening 02/27/2022 COVID-19 Vaccine (1 - 2023-2 5 season) 2023 Pneumococcal Vaccine: 50+ Ye ars (1 of 1 - PCV) 02/19/2024 Zoster Vaccines (1 of 2) 02/19/2024 Influenza Vaccine (Season Ended) 2024 HIB Vaccines Aged Out No longer eligi ble based on patient's age to complete this topic HPV Vaccines Aged Out No longer eligi ble based on patient's age to complete this topic Hepatitis A Vaccines Aged Out No long er eligible based on patient's age to complete this topic IPV Vaccines Aged Out No longer eligi ble based on patient's age to complete this topic MMR Vaccines Aged Out No longer eligi ble based on patient's age to complete this topic Meningococcal ACWY Vaccine Aged Out N o longer eligible based on patient's age to complete this topic Meningococcal B Vaccine Aged Out No l onger eligible based on patient's age to complete this topic Pneumococcal Vaccine: Pediat rics (0 to 5 Years) and At-Risk Patients (6 to 64 Years) Aged Out No longer eligible b ased on patient's age to complete this topic RSV Immunization Patients Un glenny 20 months Aged Out No longer eligible b ased on patient's age to complete this topic Varicella Vaccines Aged Out No longer eligible based on patient's age to complete this topic
--- OUTSIDE RECORDS SUMMARY | 2024-07-16 07:45 | XMS_ITS | Patient Health Record ---
Author Organization [facility] Address [address] [place] [address] Care Team Providers Care Buffing Wheel Raker Name Role Phone DREAD KERR MD Primary Care Provider Rosita blunt Kasie Chauhanli Unavailable [phone] Allergies No Known Allergies Results Component Value Reference Range Notes Urinalysis Reviewed date:07/07/2024 03:19:26 PM Interpretation: Performing Lab: Notes/Report: PH 5..0 PROTEIN Neg GLUCOSE Neg BLOOD Neg [id number] IGP No Culture 30 Plus Reviewed date:07/09/2024 04:25:32 PM Interpretation: Performing Lab:[facility] [place], [address], [address], [place], Phone - [phone], Director - [facility] Notes/Report: Clinical Information:Vaginal/Cervical, LMP: 05/30 10/22, Hx of ASCUS and + HP V 2019, Co Source.............Cervix;Vagina LMP / Prev Treat...[id number];Napanoch / BX Dates / Results....06/26/23 NIL, Neg HPV +HPV 2018, COLP NEG No. of containers..01 ThinPrep Vial DIAGNOSIS: NEGATIVE FOR IN TRAEPITHELIAL LESION OR MALIGNANCY. Specimen adequacy: Satisfactory for evaluation. Endocervical and/or squamous metaplastic cells (endocervical component) are present. Clinician provided ICD10: Z0 1.419 Performed by: Collin davis, Sap Sd Analyst ([facility]) . . Note: The Pap smear is a screening test designed to aid in the detection of premalignant and malignant conditions of the uterine cervix. It is not a diagnostic procedure and should not be used as the sole means of detecting cervical cancer. Both false-positive and false-negative reports do occur. . Test Methodology: This liquid based ThinPrep(R) pap test was screened with the use of an image guided system. HPV Aptima Negative Negative This nucleic acid amplification test detects fourteen high-risk HPV types (16,18,31,33,35,39,45,51,52,56,58 ,59,66,68) without differentiation. HPV Genotype Reflex Criteria not met, HPV Genotype not performed. PDF Report Reviewed date:07/09/2024 04:25:17 PM Interpretation: Performing Lab:[facility] [place], [address], [address], [place], Phone - [phone], Director - [facility] Notes/Report: Clinical Information:Vaginal/Cervical, LMP: 05/30 10/22, Hx of ASCUS and + HP V 2019, Co Source.............Cervix;Vagina LMP / Prev Treat...[id number];Napanoch / BX Dates / Results....06/26/23 NIL, Neg HPV +HPV 2018, COLP NEG No. of containers..01 ThinPrep Vial Reason For Referral No Information Medications Medication SIG (Take, Route, Frequency, Duration) Notes Start Date End Date Status Norethindrone Acetate 5 MG 1 tablet Oral ly Once a day for 10 days now and repeat if no menses for 3 months or longer for 90 days 07/07/2024 Active Social History Tobacco Use: Social History Observation Description Date Details (start date - stop date) Never Smoker NA - NA Sexual History Question Answer Notes Had sex in the past 12 months (vaginal, oral, or anal)? Yes with Men only Prevention strategies discussed: Other Have you ever had a Sexually transmitted disease ? No AUDIT-C (Standard) Question Answer Notes Did you have a drink containing alcohol in the p ast year? No Points 0 Interpretation Negative Tobacco Control (Standard) Question Answer Notes Tobacco use: Nonsmoker Problems Problem Type SNOMED Code ICD Code Onset Dates Problem Status W/U Status Risk Notes Problem Human papilloma virus deoxyribonucleic acid test positive, high risk on vaginal specimen (230485455332033) Cervical high risk human papillomavirus (HPV) DNA test positive (R87.810) Active confirmed Problem Gynecological examination normal (565771622897667) Encounter for gynecological examination (general) (routine) without abnormal findings (Z01.419) Active confirmed Problem Amenorrhea (53492742) Amenorrhea, unspecified (N91.2) Active confirmed Problem Unspecified menopausal and perimenopausal disorder (N95.9) Active confirmed Problem Dyspareunia (45296244) Unspecified dyspareunia (N94.10) Active confirmed Vital Signs Temperature 97.9 degrees Fahrenheit 07/07/2024 Blood pressure diastolic 78 mm Hg 07/07/2024 Height 60 in 07/07/2024 Blood pressure systolic 108 mm Hg 07/07/2024 Weight 133 lbs 07/07/2024 BMI 25.97 kg/m2 07/07/2024 Encounters Encounter Location Date Provider Diagnosis [address] [place] [address] 07/07/2024 Gricelda Chauhan Encounter for gynecological examination (general) (routine) without abnormal findings Z01.419 ; Encounter for screening mammogram for malignant neoplasm of breast Z12.31 ; Unspecified menopausal and perimenopausal disorder N95.9 ; Personal history of other diseases of the female genital tract Z87.42 and Dense breasts, unspecified R92.30 Assessments Encounter Date Diagnosis (ICD Code) Assessment Notes Treatment Notes Treatment Clinical Notes Section Notes 07/07/2024 Encounter for gynecological examination (general) (routine) without abnormal findings (ICD-10 - Z01.419) PAP TEST WITH HPVTYPING WAS OBTAINED. 07/07/2024 Encounter for screening mammogram for malignant neoplasm of breast (ICD-10 - Z12.31) REGULAR MAMMOGRAMS AND SBE'S WERE RECOMMENDED. 07/07/2024 Unspecified menopausal and perimenopausal disorder (ICD-10 - N95.9) DISCUSSED PERIMENOPAUSE AND MENOPAUSE AND SYMPTOMS ASSOCIATED WITH THESE. RECOMMENDED AYGESTIN 5 MG DAILY FOR 10 DAYS NOW AND IF NO MENSES FOR 3 MONTHS OR LONGER. 07/07/2024 Personal history of other diseases of the female genital tract (ICD-10 - Z87.42) DISCUSSED PREVIOUS HX OF ABNORMAL PAP TEST AND SUBSEQUENTLY NEGATIVE ONES. 07/07/2024 Dense breasts, unspecified (ICD-10 - R92.30) DISCUSSED DENSE BREASTS ON MAMMOGRAM AND ITS IMPLICATIONS. 3D MAMMOGRAMS WERE RECOMMENDED. Plan Of Treatment Pending Test Test Name Order Date Urinalysis 06/26/2023 ANTI-HEPATITIS C 04/03/2018 HEP. B SURF. AG 04/03/2018 MM Digital Mammo Screening 07/07/2024 MM Digital Mammo Screening 12/02/2018 MM Digital Mammo Screening 06/21/2022 MM Digital Mammo Screening 06/26/2023 MM Digital Mammo Screening 04/03/2018 SYPHILIS TESTING 04/03/2018 HIV AB-AG 4TH GENERATION 04/03/2018 Next Appt Details Provider Name:Gricelda funes, 07/13/2025 03:00:00 PM, [address], [address], [place], [address], Insurance Providers Payer Name Payer Address Payer Phone Subscriber Number Group Number Insured Name Patient Relationship to Insured Coverage Start Date Coverage End Date [facility] [address] [place] [address] [phone] [id number] JIMMY PEOPLES Self - patient is the insured Medical (General) History Medical History History ICD Code Amenorrhea, unspecified N91.2 Unspecified dyspareunia N94.10 Cervical high risk human papillomavirus (HPV) DNA test positive R87.810 Atypical squamous cells of u ndetermined significance on cytologic smear of cervix (ASC-US) R87.610 Mastodynia N64.4 Dense breasts, unspecified R92.30 Mammographic heterogeneous density, bila teral breasts R92.333 Surgical History Surgery Date(Month/Year) Breast Biopsy Bilateral Breast Augmentation 2021 Colposcopy Hospitalization History Reason Date(Month/Year) 3 Vaginal Deliveries
--- OUTSIDE RECORDS SUMMARY | 2024-07-16 07:45 | XMS_ITS ---
Author Organization [employer] [facility] Address [address] [place] [address] Care Team Providers Care Feed Grinder Name Role Phone USHA GOMEZ, DREAD Primary Care Provider Rosita Lewisuestacey Gricelda Unavailable [phone] Allergies No Known Allergies Results Component Value Reference Range Notes Urinalysis (Not yet reviewed by provider) Interpretation: Performing Lab: Notes/Report: PH 6.0 PROTEIN TRACE GLUCOSE TRACE BLOOD NEG [id number] IGP, CtNg Culture 30 Plus Reviewed date:07/02/2023 09:45:53 AM Interpretation: Performing Lab:[facility] [place], [address], [address], [place], Phone - [phone], Director - [facility] Notes/Report: Clinical Information:SRC: CERVIX VAGINAL/CERVICAL:LMP> Source.............Cervix;Vagina LMP / Prev Treat...[id number] Dates / Results....06/21/22 NEGHPV No. of containers..01 ThinPrep Vial DIAGNOSIS: NEGATIVE FOR INTRAEPITHELIAL LESION OR MALIGNANCY. ENDOMETRIAL CELLS ARE PRESENT. Specimen adequacy: Satisfactory for evaluation. Endocervical and/or squamous metaplastic cells (endocervical component) are present. Clinician provided ICD10: Z01.419 Z72.51 Performed by: Magan Rene , Platen Press Operator (ASCP) . . Note: The Pap smear is [...] Criteria not met, HPV Genotype not performed. Chlamydia, Nuc. Acid Amp Negative Negative Gonococcus, Nuc. Acid Amp Negative Negative PDF Report Reviewed date:07/02/2023 08:15:43 AM Interpretation: Performing Lab:[facility], [address], [address], [place], Phone - [phone], Director - [facility] Notes/Report: Clinical Information:SRC: CERVIX VAGINAL/CERVICAL:LMP> Source.............Cervix;Vagina LMP / Prev Treat...[id number] Dates / Results....06/21/22 NEGHPV No. 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 No Points 0 Interpretation Negative Sexual History Question Answer Notes Had sex in the past 12 months (vaginal, oral, or anal)? Yes with Men only Prevention strategies discussed: Other Have you ever had a Sexually transmitted disease ? No Vital Signs Temperature 96.9 degrees Fahrenheit 06/26/19 24 Blood pressure systolic 110 mm Hg 06/26/19 24 Blood pressure diastolic 80 mm Hg 024 Height 60 in 06/26/2023 Weight 131 lbs 06/26/2023 BMI 25.58 kg/m2 06/26/2023 Encounters Encounter Location Date Provider Diagnosis [address] [place] [address] 06/26/2023 Gricelda Chauhan Encounter for gynecological examination (general) (routine) without abnormal findings Z01.419 ; Encounter for screening mammogram for malignant neoplasm of breast Z12.31 and High risk heterosexual behavior Z72.51 Assessments Encounter Date Diagnosis (ICD Code) Assessment Notes Treatment Notes Treatment Clinical Notes Section Notes 06/26/2023 Encounter for gynecological examination (general) (routine) without abnormal findings (ICD-10 - Z01.419) PAP TEST WITH HPV TYPING WAS OBTAINED. 06/26/2023 Encounter for screening mammogram for malignant neoplasm of breast (ICD-10 - Z12.31) REGULAR MAMMOGRAMS AND SBE'S WERE RECOMMENDED. 06/26/2023 High risk heterosexual behavior (ICD-10 - Z72.51) GC & CHLAMYDIA TESTS WITH PAP SMEAR. Plan Of Treatment Treatment Notes Assessment Notes Encounter for gynecological examination (general) (routine) without abnormal findings PAP TEST WITH HPV TYPING WAS OBTAINED. Encounter for screening mamm ogram for malignant neoplasm of breast REGULAR MAMMOGRAMS AND SBE'S WERE RECOMMENDED. High risk heterosexual behavior GC & CHL AMYDIA TESTS WITH PAP SMEAR. Pending Test Test Name Order Date Urinalysis 06/26/2023 MM Digital Mammo Screening 06/26/2023 Next Appt Details Follow Up: 1 Year, Reason: Provider Name:Gricelda funes, 07/13/2025 03:00:00 PM, [address], [address], [place], [address], Progress Notes * RUBY KATZOB:[birth year] (48 yo F)Acc No.[id number]:06/26/2023 PROGRESS NOTES Patient:?JIMMY KATZ Appointment Provider:?Gricelda funes M.D. :1975???Age:48 Y???Sex:Female D ate:06/26/2023 Address:[address] [place] [address] [id number] Pcp:DREAD KERR MD Subjective: * Chief Complaints: * ???Annual CLEAN UP WORKER PhysicalAnnual CLEAN UP WORKER Physical 40-49 * HPI: ???New/Follow-up Patient Consult:? PAT CONTINUES TO HAVE REGULAR MENSES AND HAS NO S/SX OF MENOPAUSE. SHE DENIES DYSPAREUNIA. ?SHE HAS BEEN TWICE AND IS WITH HER 3RD . THEY HAVE BEEN TOGETHER FOR 6 YEARS. SHE HAS 3 CHILDREN WITH HER 2 OTHER HUSBANDS. HER PRESENT PARTNER HAS HAD A VASECTOMY. ?S/P BILATERAL BREAST AUGMENTATION PERFORMED BY DR AB PICKERING IN 2021. SHE C/O LEFT BREAST PAINS. I HAVE ADVISED HER TO SEE DR PICKERING AGAIN. ?SHE HAD ABNORMAL PAP TEST IN 2018 SHOWING ASCUS, +HPV. COLPOSCOPY WAS NEGATIVE. HER LAST PAP TEST IN 2022 WAS NEGATIVE AND HPV NEGATIVE. ?STD TESTS DONE IN 2018 WERE NEGATIVE. ?HER LAST MAMMOGRAM DONE IN SEPTEMBER 2022 SHOWED BREASTS ARE NOT DENSE AND WAS NORMAL. ?SHE HAS A COLONOSCOPY SCHEDULED FOR DEC 2023. ?PFIZER X 2. ???Annual:? Patient presents for annual exam, ages 40-49. ?General Health Maintenance:?Current breast complaints:?no breast pain, mass, discharge, or skin changes ?Urinary problems:?patient reports no urinary health problems or bowel health problems ?Calcium intake:?takes adequate calcium via diet and supplementation ?Significant CLEAN UP WORKER problems:?no significant medical collections specialist symptoms or problems * ROS:?general:?no?chest pain.?no?palpitations.?no?headache.?no?cough.?no?shortness of breath.?no?fever.?no?unexplained weight loss.?no?nausea/vomiting.?no?change in bowel movements.?no blood in stool.?no?genitourinary complaints.?no?skin complaints.? * Medical History:? * Director [employer] History:?/ Para?3/3.?Sexual activity?currently sexually active.?Last Pap Smear:?06/21/22 NIL, NEG HPV, 12/02/18 NIL, NEG HPV, 04/03/2018, ASCUS, POS HRHPV, 04/22/18 [place] Negative.?Mammogram:?09/2022, [facility], Bilateral Breast MRI 05/23/22, 11/05/17, < 50% density.?Abnormal Pap Smear:?ASCUS, positive HRHPV.?LMP and menses?06/20/23, 06/02/22.?History of STD's:?none.? * OB History:?Total pregnancies?3.?Total living children?3.?NVD?3.? * Surgical History:?Breast Bio psy * Hospitalization/Major Diagno stic Procedure:?3 Vaginal Deliveries * Family History:?Mother: dece ased, hypertension.?Father: alive, hypertension.? * Social History:?Tobacco Use:?Tobacco Use/Smoking?Are you a?nonsmoker ???Sexual History:?Sexual History?Had sex in the past 12 months (vaginal, oral, or anal)??Yes ?with?Men only ?Prevention strategies discussed:?Other ?Have you ever had a Sexually transmitted disease??No ?Details of Sexual History?Are you sexually active??Yes ???Drugs/Alcohol:?Drugs?Have you used drugs other than those for medical reasons in the past 12 months??No ?Alcohol Screen (Audit-C)?Did you have a drink containing alcohol in the past year??No ?Points?0 ?Interpretation?Negative ???Miscellaneous:?Children: yes, 3. ?no Exercise. ?Home smoke detector use: yes. ?Living with: spouse. ?Marital status: . ?Natural support system: yes. 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 ?Sexually active: yes, monogamous relationship. * Medications:?None * Allergies:?N.K.D.A.no[Allerg ies Verified] Objective: * Vitals:?Ht: 60 in, Wt:131 lb s, BMI:25.58 Index, BP:110/80 mm Hg, Temp:96.9 F. * Examination: ???General Exam: ?CONSTITUTIONAL:?General Appearance:?alert, in no acute distress, normal, well nourished ?NECK/THYROID:?Inspection/Palpation:?normal ?Thyroid:?normal size and shape ?RESPIRATORY:?Auscultation: clear to auscultation bilaterally, Respiratory Effort: normal.?CARDIOVASCULAR:?Auscultation: regular rate and rhythm.?BREAST, Right:?Inspection/Palpation:?no discharge, no masses present, no nipple retraction, no skin changes, no skin dimpling, no tenderness, no lymphadenopathy, no axillary mass, no axillary tenderness ?BREAST, Left:?Inspection/Palpation:?no discharge, no masses present, no nipple retraction, no skin changes, no skin dimpling, no tenderness, no lymphadenopathy, no axillary mass, no axillary tenderness ?GASTROINTESTINAL:?Abdomen:?no masses, nontender, nondistended ?Liver and Spleen:?normal ?Hernias:?no hernias present, no inguinal adenopathy ?MUSCULOSKELETAL:?Inspection/Palpation:?no clubbing, cyanosis, or edema ?SKIN:?Skin:?normal ?NEURO/PSYCH:?Orientation:?time , place, person ?Mood/Affect:?normal?Genitourinary: ?EXTERNAL GENITALIA:?External Genitalia:?normal, no lesions ?VAGINA:?Vagina:?normal appearance, no abnormal discharge, no lesions ?BLADDER:?Bladder:?no mass, nontender ?URETHRA:?Urethra:?no erythema or lesions present ?CERVIX:?Cervix:?no lesions, nontender ?UTERUS:?Uterus:?nontender, normal contour, normal mobility, normal size ?ADNEXA:?Adnexa:?no masses, no tenderness ?ANUS AND PERINEUM:?Anus/Perineum:?visually normal??? Assessment: * Assessment: 1.?Encounter for gynecologic al examination (general) (routine) without abnormal findings - Z01.419?2.?Encounter for screening mammogram for malignant neoplasm of breast - Z12.31?3.?High risk heterosexual behavior - Z72.51? Plan: * Treatment: ? Value Reference Range ?PH 6.0 * ?PROTEIN TRACE * ?GLUCOSE TRACE * ?BLOOD NEG Notes: PAP TEST WITH HPV TYPING WAS OBTAINED.??2.?Encounter for screening mammogram for malignant neoplasm of breast?Imaging: MM Digital Mammo Screening Notes: REGULAR MAMMOGRAMS AND SBE'S WERE RECOMMENDED.??3.?High risk heterosexual behavior? Notes: GC & CHLAMYDIA TESTS WITH PAP SMEAR.?? * Procedure Codes:? * Preventive Medicine:? ??YOUR PREVENTIVE WELLNESS PLAN:?Osteoporosis prevention?Calcium, D, strength training.?Breast Cancer Screening (Mammogram):?annually.?Cervical Cancer Screening (Pap Smear):?q 3 years with HPV screen.?Colorectal Cancer Screening:?q 10 years.? * Follow Up:?1 Year * Images: Billing Information: * Visit Code:? 51969 Preventive Care New Pt. Age 40-64. 56932 Preventive Care Est Pt. Age 40-64. * Procedure Codes:? * Sign off status: Completed true * Appointment Provider:?Gricelda Chauhan M.D. Date:?06/26/2023 Generated for Akin jones/Rogelio/Clem on:?07/16/2024 07:44 AM EDT History and Physical Notes * HPI (History of Present Illness) Category Sub-Category Detail Notes Category Not es New/Follow-up Patient Consult PAT CONTINUES TO HAVE REGULAR MENSES AND HAS NO S/SX OF MENOPAUSE. SHE DENIES DYSPAREUNIA. SHE HAS BEEN TWICE AND IS WITH HER 3RD . THEY HAVE BEEN TOGETHER FOR 6 YEARS. SHE HAS 3 CHILDREN WITH HER 2 OTHER HUSBANDS. HER PRESENT PARTNER HAS HAD A VASECTOMY. S/P BILATERAL BREAST AUGMENTATION PERFORMED BY DR AB PICKERING IN 2021. SHE C/O LEFT BREAST PAINS. I HAVE ADVISED HER TO SEE DR PICKERING AGAIN. SHE HAD ABNORMAL PAP TEST IN 2018 SHOWING ASCUS, +HPV. COLPOSCOPY WAS NEGATIVE. HER LAST PAP TEST IN 2022 WAS NEGATIVE AND HPV NEGATIVE. STD TESTS DONE IN 2018 WERE NEGATIVE. HER LAST MAMMOGRAM DONE IN SEPTEMBER 2022 SHOWED BREASTS ARE NOT DENSE AND WAS NORMAL. SHE HAS A COLONOSCOPY SCHEDULED FOR DEC 2023. PFIZER X 2. Annual General Health Maintenance: Current breast complaints:: no breast pain, mass, discharge, or skin changes Urinary problems:: patient r eports no urinary health problems or bowel health problems Calcium intake:: takes adequ ate calcium via diet and supplementation Significant CLEAN UP WORKER problems:: n o significant medical collections specialist symptoms or problems Examination Category Sub-Category Detail Notes Category Not es General Exam CONSTITUTIONAL: General Appearan ce:: alert, in no acute distress, normal, well nourished NECK/THYROID: Inspection/Palpation:: normal Thyroid:: normal size and shape RESPIRATORY: Auscultation: clear to auscultation bilaterally, Respiratory Effort: normal CARDIOVASCULAR: Auscultation: regula r rate and rhythm GASTROINTESTINAL: Abdomen:: no masses, nontender , nondistended Liver and Spleen:: normal Hernias:: no hernias present, no inguina l adenopathy MUSCULOSKELETAL: Inspection/Palpation:: no clubb ing, cyanosis, or edema SKIN: Skin:: normal NEURO/PSYCH: Orientation:: time , place, pers on Mood/Affect:: normal BREAST, Right: Inspection/Palpation :: no discharge, no masses present, no nipple retraction, no skin changes, no skin dimpling, no tenderness, no lymphadenopathy, no axillary mass, no axillary tenderness BREAST, Left: Inspection/Palpation :: no discharge, no masses present, no nipple retraction, no skin changes, no skin dimpling, no tenderness, no lymphadenopathy, no axillary mass, no axillary tenderness Genitourinary EXTERNAL GENITALIA: External Genitalia:: nor mal, no lesions VAGINA: Vagina:: normal appearance, no a bnormal discharge, no lesions BLADDER: Bladder:: no mass, nontender URETHRA: Urethra:: no erythema or lesions present CERVIX: Cervix:: no lesions, nontender UTERUS: Uterus:: nontender, normal conto ur, normal mobility, normal size ADNEXA: Adnexa:: no masses, no tendernes s ANUS AND PERINEUM: Anus/Perineum:: visually norm al
--- OUTSIDE RECORDS SUMMARY | 2024-07-16 07:45 | XMS_ITS ---
Author Organization [facility] Address [address] [place] [address] Care Team Providers Care Wax Blender Name Role Phone USHA GOMEZ, DREAD Primary Care Provider Rosita joselori ChauhanKasieli Unavailable [phone] Allergies No Known Allergies Results Component Value Reference Range Notes Urinalysis Reviewed date:07/07/2024 03:19:26 PM Interpretation: Performing Lab: Notes/Report: PH 5..0 PROTEIN Neg GLUCOSE Neg BLOOD Neg [id number] IGP No Culture 30 Plus Reviewed date:07/09/2024 04:25:32 PM Interpretation: Performing Lab:[facility], [address], [place], Phone - [phone], Director - [facility] Notes/Report: Clinical Information:Vaginal/Cervical, LMP: 05/30 10/22, Hx of ASCUS and + HP V 2019, Co Source.............Cervix;Vagina LMP / Prev Treat...QCO=[id number];[place] / BX Dates / Results....06/26/23 NIL, Neg HPV +HPV 2018, COLP NEG No. of containers..01 ThinPrep Vial DIAGNOSIS: NEGATIVE FOR IN TRAEPITHELIAL LESION OR MALIGNANCY. Specimen adequacy: Satisfactory for evaluation. Endocervical and/or squamous metaplastic cells (endocervical component) are present. Clinician provided ICD10: Z0 1.419 Performed by: Collin davis, Sales Promotion Representative ([facility]) . . Note: The Pap smear is [...] PM Interpretation: Performing Lab:[facility] [place], [address], [address], [place], Phone - [phone], Director - [facility] Notes/Report: Clinical Information:Vaginal/Cervical, LMP: 05/30 10/22, Hx of ASCUS and + HP V 2019, Co Source.............Cervix;Vagina LMP / Prev Treat...[id number]=[id number];[place] / BX Dates / Results....06/26/23 NIL, Neg HPV +HPV 2018, COLP NEG No. 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, Annual CRISIS COUNSELOR Physical 50-59* Medications Medication SIG (Take, Route, Frequency, Duration) [...] Problem Status W/U Status Risk Notes Problem Unspecified menopausal and perimenopausal disorder (N95.9) Active confirmed Vital Signs Temperature 97.9 degrees Fahrenheit 07/08/19 25 Blood pressure systolic 108 mm Hg 07/08/19 25 Blood pressure diastolic 78 mm Hg 025 Height 60 in 07/07/2024 Weight 133 lbs 07/07/2024 BMI 25.97 kg/m2 07/07/2024 Encounters Encounter Location Date Provider Diagnosis Total [address] [place] [address] 07/07/2024 Gricelda Chauhan Encounter for gynecological examination [...] 3D MAMMOGRAMS WERE RECOMMENDED. Plan Of Treatment Medication Medication Name Sig Start Date Stop Date Notes Norethindrone Acetate 5 MG 1 tablet Oral ly Once a day for 10 days now and repeat if no menses for 3 months or longer for 90 days 07/07/2024 Treatment Notes Assessment Notes Encounter for gynecological examination (general) (routine) without abnormal findings PAP TEST WITH HPVTYPING WAS OBTAINED. Encounter for screening mamm ogram for malignant neoplasm of breast REGULAR MAMMOGRAMS AND SBE'S WERE RECOMMENDED. Unspecified menopausal and p erimenopausal disorder DISCUSSED PERIMENOPAUSE AND MENOPAUSE AND SYMPTOMS ASSOCIATED WITH THESE. RECOMMENDED AYGESTIN 5 MG DAILY FOR 10 DAYS NOW AND IF NO MENSES FOR 3 MONTHS OR LONGER. Personal history of other di seases of the female genital tract DISCUSSED PREVIOUS HX OF ABNORMAL PAP TE ST AND SUBSEQUENTLY NEGATIVE ONES. Dense breasts, unspecified DISCUSSED DENSE BREASTS ON MAMMOGRAM AND ITS IMPLICATIONS. 3D MAMMOGRAMS WERE RECOMMENDED. Pending Test Test Name Order Date MM Digital Mammo Screening 07/07/2024 Next Appt Details Follow Up: 1 Year, Reason: Provider Name:Gricelda funes, 07/13/2025 03:00:00 PM, [address], [address], [place], [address], Progress Notes * RUBY KATZOB:[birth year] (49 yo F)Acc No.[id number]:07/07/2024 PROGRESS NOTES Patient:?STERLING JIMMY Appointment Provider:?Gricelda funes M.D. :1975???Age:49 Y???Sex:Female D ate:07/07/2024 Address:[address] [place] [address] [place] Pcp:DREAD KERR MD Subjective: * Chief Complaints: * ???Annual CRISIS COUNSELOR PhysicalAnnual CRISIS COUNSELOR Physical 50-59* * HPI: ???New/Follow-up Patient Consult:? TAMIKO'S MENSES ARE COMING AT LONGER INTERVALS AND ARE SIGNIFICANTLY PASTEURIZING SUPERVISOR.? HER MENSTRUAL PERIOD IN MAY 2024 ONLY LASTED A DAY AND HER PERIOD IN MAY WAS JUST SPOTTING FOR A WEEK.? SHE HAS TOLERABLE HOT FLASHES AND NIGHT SWEATS. SHE HAS BEEN WITH THE SAME PARTNER (3RD ) FOR 8 YEARS.? SHE DENIES DYSPAREUNIA.? HE HAS HAD A VASECTOMY. S/P BILATERAL BREAST AUGMENTATION PERFORMED BY DR AB PICKERING IN 2021. HER PAP TEST IN 2018 SHOWED ASCUS, +HPV.? COLPOSCOPY WAS NEGATIVE AND SUBSEQUENT PAP TESTS HAVE BEEN NEGATIVE AND HPV NEGATIVE.? REPEAT PAP TESTS INCLUDING HER LAST ONE IN 2023 HAVE BEEN NEGATIVE AND HPV NEGATIVE. STD TESTING DONE IN 2019 WERE NEGATIVE. HER LAST MAMMOGRAM DONE IN OCT 2023 SHOWED DENSE BREASTS AND WAS NORMAL.? SHE HAS NO FAMILY HX OF BREAST, OVARIAN, COLON OR UTERINE CA. SHE HAS A COLONOSCOPY APPT FOR 07/26/24. ???Annual:? Patient presents for annual exam, ages 50-59. ?General Health Maintenance:?Current breast complaints:?no breast pain, mass, discharge, or skin changes ?Urinary problems:?patient reports no urinary health problems or bowel health problems ?Calcium intake:?takes adequate calcium via diet and supplementation ?Significant CRISIS COUNSELOR problems:?no significant sales trainee symptoms or problems * ROS:?general:?no?chest pain.?no?palpitations.?no?headache.?no?cough.?no?shortness of breath.?no?fever.?no?unexplained weight loss.?no?nausea/vomiting.?no?change in bowel movements.?no blood in stool.?no?genitourinary complaints.?no?skin complaints.? * Medical History:? 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 * OB History:?Total pregnancies?3.?Total living children?3.?NVD?3.? * Surgical History:?Breast Bio psy Bilateral Breast Augmentation olposcopy * Hospitalization/Major Diagno stic Procedure:?3 Vaginal Deliveries * Family History:?Mother: dece ased, hypertension.?Father: alive, hypertension.? * Social History:?Tobacco Use:?Tobacco Control (Standard)?Tobacco use:?Nonsmoker ???Sexual History:?Sexual History?Had sex in the past 12 months (vaginal, oral, or anal)??Yes ?with?Men only ?Prevention strategies discussed:?Other ?Have you ever had a Sexually transmitted disease??No ?Details of Sexual History?Are you sexually active??Yes ???Drugs/Alcohol:?Drugs?Have you used drugs other than those for medical reasons in the past 12 months??No ???Miscellaneous:?Children: yes, 3. ?Exercise: no. ?Home smoke detector use: yes. ?Living with: spouse. ?Marital status: . ?Natural support system: yes. 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 ?Sexually active: yes, monogamous relationship. ???Drug/Alcohol:?AUDIT-C (Standard)?Did you have a drink containing alcohol in the past year??No ?Points?0 ?Interpretation?Negative * Medications:?None * Allergies:?N.K.D.A.no[Allerg ies Verified] Objective: * Vitals:?Ht: 60 in, Wt:133lbs , BMI:25.97Index, BP:108/78mm Hg, Temp:97.9F. * Examination: ???General Exam: ?CONSTITUTIONAL:?General Appearance:?alert, in [...] examination (general) (routine) without abnormal findings - Z01.419???2.?Encounter for screening mammogram for malignant neoplasm of breast - Z12.31???3.?Unspecified menopausal and perimenopausal disorder - N95.9???4.?Personal history of other diseases of the female genital tract - Z87.42???5.?Dense breasts, unspecified - R92.30??? Plan: * Treatment: ?LAB: Urinalysis (Collection Date & Time - 07/07/2024)* ? Value Reference Range ?PH 5..0 * ?PROTEIN Neg * ?GLUCOSE Neg * ?BLOOD Neg * DBAILEY Boyd 07/07/2024 03:05:31 PM EDT > Notes: PAP TEST WITH HPVTYPING WAS OBTAINED.??2.?Encounter for screening mammogram for malignant neoplasm of breast?Imaging: MM Digital Mammo Screening Notes: REGULAR MAMMOGRAMS AND SBE'S WERE RECOMMENDED.??3.?Unspecified menopausal and perimenopausal disorder? Start Norethindrone Acetate Tablet, 5 MG, 1 tablet, Orally, Once a day for 10 days now and repeat if no menses for 3 months or longer, 90 days, 30, Refills 3.?? Notes: DISCUSSED PERIMENOPAUSE AND MENOPAUSE AND SYMPTOMS ASSOCIATED WITH THESE. RECOMMENDED AYGESTIN 5 MG DAILY FOR 10 DAYS NOW AND IF NO MENSES FOR 3 MONTHS OR LONGER.??4.?Personal history of other diseases of the female genital tract? Notes: DISCUSSED PREVIOUS HX OF ABNORMAL PAP TEST AND SUBSEQUENTLY NEGATIVE ONES.??5.?Dense breasts, unspecified? Notes: DISCUSSED DENSE BREASTS ON MAMMOGRAM AND ITS IMPLICATIONS. 3D MAMMOGRAMS WERE RECOMMENDED.?? * Procedure Codes:? * Preventive Medicine:? ??YOUR PREVENTIVE WELLNESS PLAN:?Osteoporosis prevention?Calcium, D, strength training.?Breast Cancer Screening (Mammogram):?annually.?Cervical Cancer Screening (Pap Smear):?q 3 years with HPV screen.?Colorectal Cancer Screening:?q 10 years.? * Follow Up:?1 Year * Images: Billing Information: * Visit Code:? [id number] Preventive Care New Pt. Age 40-64. 40321 Preventive Care Est Pt. Age 40-64. * Procedure Codes:? * Sign off status: Completed true * Appointment Provider:?Gricelda Chauhan M.D. Date:?07/07/2024 Generated for Akin jones/Rogelio/Estefanyitting on:?07/16/2024 07:44 AM EDT History and Physical Notes * HPI (History of Present Illness) Category Sub-Category Detail Notes Category Not es New/Follow-up Patient Consult PAT'S MENSES ARE COMING AT LONGER INTERVALS AND ARE SIGNIFICANTLY PASTEURIZING SUPERVISOR. HER MENSTRUAL PERIOD IN MAY 2024 ONLY LASTED A DAY AND HER PERIOD IN MAY WAS JUST SPOTTING FOR A WEEK. SHE HAS TOLERABLE HOT FLASHES AND NIGHT SWEATS. SHE HAS BEEN WITH THE SAME PARTNER (3RD ) FOR 8 YEARS. SHE DENIES DYSPAREUNIA. HE HAS HAD A VASECTOMY. S/P BILATERAL BREAST AUGMENTATION PERFORMED BY DR AB PICKERING IN 2021. HER PAP TEST IN 2018 SHOWED ASCUS, +HPV. COLPOSCOPY WAS NEGATIVE AND SUBSEQUENT PAP TESTS HAVE BEEN NEGATIVE AND HPV NEGATIVE. REPEAT PAP TESTS INCLUDING HER LAST ONE IN 2023 HAVE BEEN NEGATIVE AND HPV NEGATIVE. STD TESTING DONE IN 2019 WERE NEGATIVE. HER LAST MAMMOGRAM DONE IN OCT 2023 SHOWED DENSE BREASTS AND WAS NORMAL. SHE HAS NO FAMILY HX OF BREAST, OVARIAN, COLON OR UTERINE CA. SHE HAS A COLONOSCOPY APPT FOR 07/26/24. Annual General Health Maintenance: Current breast complaints:: no breast pain, mass, discharge, or skin changes Urinary problems:: patient r eports no urinary health problems or bowel health problems Calcium intake:: takes adequ ate calcium via diet and supplementation Significant CRISIS COUNSELOR problems:: n o significant sales trainee symptoms or problems Examination Category Sub-Category Detail [...]
[2024-07-16 07:59] VITALS: BP 146/88; PULSE 70; O2SAT 100; BMI 24.3
--- NOTE | 2024-07-16 07:59 | A.OFFVIS_ITS ---
Vital Signs 07/16/24 07:59 Height 5 ft 3 in Weight 137 lb BMI 24.3 BP 146/88 H Blood Pressure Location Rt brachial Position Sitting Pulse 70 Pulse Source Pulse Oximeter Pulse Oximetry (%) 100 Oxygen Delivery Method Room Air Intake Visit Reasons: Colonoscopy Screening Intake Note: NEW PATIENT for initial screening. Chief Complaint; Pt denies any GI sx or concerns at this time. No pertinent FMHx. 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 female is here today for pre colonoscopy screening.? Patient was sent to us by her PCP.? This is her first colonoscopy screening.? Patient denies any gastrointestinal symptoms in the past or at present.? Denies any personal or family history of gastrointestinal disease, colon polyps, or CRC.? Denies history of difficulty with sedation or anesthesia in the past.? Negative for history of sleep apnea.? Denies any history of cardiac, renal, pulmonary, or hepatic disease.?? No history of infectious? diseases like hepatitis A, B, C, HIV or tuberculosis.? Patient is not on any anticoagulation [facility] Medical History Smoker unmotivated to quit Impaired fasting glucose Dyslipidemia Family history of brain aneurysm Insomnia Dysmenorrhea [place] of toe Surgical History History of lumpectomy of right breast Family History Father HTN (hypertension) Mother Myocardial infarction Other Family history of brain aneurysm Social History Housing: House Alcohol intake: never Patient Tobacco Use Status: Current everyday Tobacco user Tobacco use type: Cigarette Cigarettes Per Day: 6 Years Smoked: 7 e-Cigarette/Vaping Use: Never Used Second Hand Smoke Exposure: No service: No Current occupational status: employed Cognitive needs: No Hearing needs: No Vision needs: No Review of Systems Const Denies weight gain and Denies weight loss ENT Reports no additional complaints, Denies dysphagia and Denies odynophagia Card Reports no additional complaints Resp Reports no additional complaints GI Denies abdominal pain, Denies belching, Denies melena, Denies bloating, Denies change in bowel habits, Denies dysphagia, Denies excessive flatus, Denies dyspepsia, Denies heartburn, Denies diarrhea, Denies loose stools, Denies nausea, Denies odynophagia and Denies vomiting Musc Reports no additional complaints Neuro Reports no additional complaints Psych Reports no additional complaints Endo Reports no additional complaints Physical Exam Vital Signs: Last Vital Signs Pulse 70 07/16/24 07:59 BP 146/88 H 07/16/24 07:59 Pulse Ox 100 07/16/24 07:59 Oxygen Delivery Method Room Air 07/16/24 07:59 BMI result Body Mass Index 24.3 Const General: healthy appearing, no acute distress and well developed Nutritional Appearance: well nourished Orientation/consciousness: patient oriented x3 Resp Effort & Inspection: normal respiratory effort, able to speak in complete sentences, no tracheal deviation and symmetric chest movement Auscultation: clear to auscultation bilaterally Cardio Rate: regular rate GI Inspection: Yes normal to inspection and No distended Palpation (GI): Soft to palpation, not firm, nontender and No hepatosplenomegaly present Auscultation: normal bowel sounds General: Yes no CVA tenderness Back/Spine/Pelvis Back: no CVA tenderness Skin General skin exam: elasticity normal, turgor normal and dry skin Neuro General: patient oriented x3 Psych Appearance: grossly normal Mental Status: mental status grossly normal Assessment & Plan Assessment & Plan (1) Encounter for screening for malignant neoplasm of colon: Code(s): Z12.11 - Encounter for screening for malignant neoplasm of colon Plan Patient denies any GI, cardiac or respiratory symptoms.? Denies any issues with anesthesia in the past.? Denies any history of sleep apnea.? No history infectious diseases in the past or present.? Not on any anticoagulation therapy.? No family or personal history of colon cancer or polyps.? Patient denies melena, hematochezia, unintentional weight loss or ribbon like stools.? Discussed at length the pre-procedure,? prep, diet & medications as well as what to expect prior, during and after the procedure.?? Stressed the importance of good bowel prep.? Recommended the use of Vaseline or Calmoseptine OTC & baby wipes with bowel movements to promote comfort.? ?Patient verbalizes understanding and agrees to plan of care.? She was given the opportunity to ask questions and all questions answered.? We will see her after the procedure.? Medications: New bisacodyl (Dulcolax (bisacodyl)) Start taking 2 tablet every night 7 days before the procedure and 1 day before procedure take 4 tablets at noon time followed by MiraLax prep 10 mg (2 x 5 mg) PO BEDTIME 16 tabs 0RF Z12.11 - Encounter for screening for malignant neoplasm of colon polyethylene glycol 3350 (Miralax) As directed by gastro[facility]ology department at [facility] 238 grams PO ONCE 238 grams 0RF Z12.11 - Encounter for screening for malignant neoplasm of colon Coding Level of Care Code New Pt Level 3 (41921) Diagnoses Encounter for screening for malignant neoplasm of colon Z12.11 Time Spent (min) 40 Comment 30 minutes spent with patient and additional 10 minutes spent reviewing her records
== END 2024-07-16 08:38 | disposition home or self-care (01) ==
LOC: HO.HGI 07:42
PROVIDERS: PCP Internal Medicine; Visit Provider Nurse Practitioner Family
DX: Z12.11 Encounter for screening for malignant neoplasm of colon (principal); Z01.818 Encounter for other preprocedural examination
CPT/HCPCS: 99202

== ENCOUNTER 2024-10-18 07:06 | Day surgery (SDC) | payer OTHER, MEDICAID, SELFPAY ==
--- OUTSIDE RECORDS SUMMARY | 2024-09-22 10:12 | XMS_ITS | Clinical Summary ---
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
--- NOTE | 2024-10-14 15:04 | P.CONAN_ITS ---
Documented by User: Jennifer Crockett NP 10/14/24 15:04 HPI - Anesthesia Eval Consult details Narrative: 49yo F for Colonoscopy PMFSH Active Problems Active Problems: All Active Problems Smoker unmotivated to quit (Acute) Impaired fasting glucose (Acute) Dyslipidemia (Acute) Family history of brain aneurysm (Acute) Dysmenorrhea (Acute) Past Medical History Medical History Smoker unmotivated to quit Impaired fasting glucose Dyslipidemia Family history of brain aneurysm Insomnia Dysmenorrhea [place] of toe Family History Family History Father HTN (hypertension) Mother Myocardial infarction Other Family history of brain aneurysm Surgical History Surgical History Hx of breast augmentation History of lumpectomy of right breast Social History Social History Housing: House Alcohol intake: never Patient Tobacco Use Status: Current everyday Tobacco user Tobacco use type: Cigarette Cigarettes Per Day: 5 Years Smoked: 7 e-Cigarette/Vaping Use: Never Used Second Hand Smoke Exposure: No Use of substances other than those prescribed or required for medical reasons: No Are you DNR?: No Advance Directives: No Advance Directives Information Provided: Yes service: No Current occupational status: employed Cognitive needs: No Hearing needs: No Vision needs: No Meds Allergies Allergy/AdvReac Type Severity Reaction Status Date / Time No Known Allergies Allergy Verified 10/18/24 07:34 Home Medications ?Medication ?Instructions ?Recorded ?Confirmed ?Last Taken ?Type No Known Home Meds 10/18/24 10/18/24 Un known History Assessment and Plan Assessment Anesthesia Assessment: Chart Reviewed Documented by User: Rachel Mccullough MD 10/18/24 08:08 [facility] Past Medical History Medical History Smoker unmotivated to quit Impaired fasting glucose Dyslipidemia Family history of brain aneurysm Insomnia Dysmenorrhea [place] of toe Family History Family History Father HTN (hypertension) Mother Myocardial infarction Other Family history of brain aneurysm Surgical History Surgical History Hx of breast augmentation History of lumpectomy of right breast History of Problems with Anesthesia: No Social History Social History Housing: House Alcohol intake: never Patient Tobacco Use Status: Current everyday Tobacco user Tobacco use type: Cigarette Cigarettes Per Day: 5 Years Smoked: 7 e-Cigarette/Vaping Use: Never Used Second Hand Smoke Exposure: No Use of substances other than those prescribed or required for medical reasons: No Are you DNR?: No Advance Directives: No Advance Directives Information Provided: Yes service: No Current occupational status: employed Cognitive needs: No Hearing needs: No Vision needs: No Meds Allergies Allergy/AdvReac Type Severity Reaction Status Date / Time No Known Allergies Allergy Verified 10/18/24 07:34 Home Medications ?Medication ?Instructions ?Recorded ?Confirmed ?Last Taken ?Type No Known Home Meds 10/18/24 10/18/24 Un known History Exam Airway Mallampati Class: III (prominent upper front teeth) TM Dist: >3cm Neck ROM: Full Loose/Missing/Broken Teeth: No Heart: RRR Lungs: CTA Assessment and Plan Assessment Anesthesia Assessment: Anesthesia Plan Discussed Final Anesthetic Review History of Problems with Anesthesia: No NPO: Yes ASA Class: II Final Preanesthetic Review: Meds/Allgs Chart Reviewed, Consent Obtained/Reviewed and Anes Risks/Benef Reviewed Patient Risk: Low Procedure Risk: Low Anesthetic Plan Anesthetic Plan: MAC: Disposition: Standard PACU
[2024-10-14 15:55] VITALS: BMI 24.3
--- NOTE | 2024-10-18 07:26 | MHC.SHP ---
Pre-Procedural Eval Section A - 24 Hr Update-Section A only Date of Service: 10/18/24 The patient is an INPATIENT: No The patient has been examined within 24 hours of the surgical procedure. The History & Physical has been completed within 30 days and I have reviewed it.: No Section B - Complete if H&P > 30 days Chief Complaint: Colon cancer screening Relevant Family History (Specify if Yes): No Relevant Social History: Tobacco Use Present Medications: see Short Stay Collaborative assessment Medical History: Significant History (Dyslipidemia Family history of brain aneurysm Insomnia Dysmenorrhea) History of Previous Operations: Relevant previous surgery/procedure and date(s) (History of lumpectomy of right breast) Allergies: Allergies Allergy/AdvReac Type Severity Reaction Status Date / Time No Known Allergies Allergy Verified 07/16/24 07:59 Review of Systems Sugical H&P ROS: Negative: Constitution, Cardiovascular, Respiratory and Gastrointestinal Exam Surgical H&P Exam: Normal: Heart, Normal: Lungs, Normal: Extremities and Normal: Abdomen Plan Diagnosis/Plan: Unchanged I have reviewed the history and physical and performed a pertinent physical examination on my patient. No changes have occurred unless specified. Time Spent With Patient Time: Total time managing care of this patient today ____ minutes.
[2024-10-18 07:35] VITALS: BMI 23.4
[2024-10-18 07:42] LABS: UPreg QC Valid YES
[2024-10-18 07:43] VITALS: BP 121/78; PULSE 72; RESP 15; TEMP 36.6; O2SAT 100
[2024-10-18] MEDS: Lactated Ringers 1,000 ML 100 ML IVCONT (07:52)
--- NOTE | 2024-10-18 08:56 | P.OPN-COLO_ITS ---
Colonoscopy Operative Note Operative Note Date of Service: 10/18/24 Narrative: COLONOSCOPY TILL CECUM WITH BIOPSIES, SNARE POLYPECTOMY AND HEMOCLIP PLACEMENT Pre-op diagnosis: Colon cancer screening (first colon). Post-op diagnosis:? colon polyps, Diverticulosis, hemorrhoids Endoscopist:? Sasha Cevallos MD Anesthesia:?MAC Consent: Indications for the procedure and potential complications of bleeding, perforation, reaction to medications and missed diagnosis were discussed with the patient and informed consent was obtained. Instrument: Olympus PCF H 190 L variable stiffness pediatric colonoscope Monitoring: Vital signs and clinical assessment, intermittent blood pressure monitoring, continuous EKG monitoring, Pulse oximetry and Carbon Dioxide monitoring were done throughout the procedure. Please see anesthesia flowsheet. Colon withdrawl time was 18 minutes. Procedure: The patient was placed in the left lateral decubitis position and pre-procedure medications were administered. After a digital rectal examination of the ano-rectum, the video colonoscope was inserted into the rectum and advanced through the colon to the cecum. The colonoscope was slowly withdrawn in a retrograde panoramic fashion and the colon mucosa was carefully examined including a retroflexed view of the rectum. Findings and interventions are described below. Procedure Difficulty: without difficulty Findings: Terminal Ileum: Not evaluated Cecum: A 10 - 12 mm sessile polyp adjacent to the appendicular orifice - removed with a cold snare. Polypectomy site was closed with 1 hemoclip Ascending Colon: Normal Transverse Colon: Normal Descending Colon: Normal Sigmoid Colon: Two 4-5 mm sessile polyps - removed with a cold biopsy. Moderate diverticulosis Rectum: Normal Ano-rectum: Small internal hemorrhoids Colon preparation: Good after copious irrigation. [place] Bowel Preparation Scale Right colon; 2 Transverse colon: 2 Left colon; 2 (0 = Unprepared colon segment with mucosa not seen due to solid stool that cannot be cleared. 1 = Portion of mucosa of the colon segment seen, but other areas of the colon segment not well seen due to staining, residual stool and/or opaque liquid. 2 = Minor amount of residual staining, small fragments of stool and/or opaque liquid, but mucosa of colon segment seen well. 3 = Entire mucosa of colon segment seen well with no residual staining, small fragments of stool or opaque liquid) Impression and Post Procedure Diagnosis: Colonoscopy Findings: Three small to medium sized polyps were removed Moderate diverticulosis seen in the sigmoid colon Small hemorrhoids on retroflexed exam. Plan: I will send a letter with biopsy results. Repeat Colonoscopy in 3-5 years if polyps are adenomatous and 10 year if polyps are hyperplastic. Above findings were reviewed with the patient and relevant handouts were given in the discharge area.
[2024-10-18 08:57] VITALS: BP 107/79; PULSE 63; RESP 18; TEMP 36.6; O2SAT 100
[2024-10-18 09:12] VITALS: BP 102/81; PULSE 68; RESP 18; TEMP 36.6; O2SAT 100
== END 2024-10-18 09:48 | disposition home or self-care (01) ==
PROVIDERS: Nurse Practitioner; PCP Internal Medicine; Visit Provider Internal Medicine Gastroenterology
PROC: 0DJD8ZZ Inspection of Lower Intestinal Tract, Via Natural or Artificial Opening Endoscopic (ICD-10-PCS; CPT 45378; principal; 2024-10-18 08:20)
DX: Z12.11 Encounter for screening for malignant neoplasm of colon (principal); D12.0 Benign neoplasm of cecum; K63.5 Polyp of colon; K57.30 Diverticulosis of large intestine without perforation or abscess without bleeding; K64.8 Other hemorrhoids; E78.5 Hyperlipidemia, unspecified; R73.01 Impaired fasting glucose; N94.6 Dysmenorrhea, unspecified; G47.00 Insomnia, unspecified; F17.210 Nicotine dependence, cigarettes, uncomplicated; Z98.890 Other specified postprocedural states
CPT/HCPCS: 45385; 45380; 81025; 88305; J2003; J2704

== ENCOUNTER → 2024-10-18 07:06 | Outpatient (BNV) | payer OTHER, MEDICAID, SELFPAY | PROVIDERS: PCP Internal Medicine; Visit Provider Internal Medicine Gastroenterology | DX: Z12.11 Encounter for screening for malignant neoplasm of colon (principal); D12.0 Benign neoplasm of cecum; D12.5 Benign neoplasm of sigmoid colon; K57.30 Diverticulosis of large intestine without perforation or abscess without bleeding; K64.8 Other hemorrhoids | CPT/HCPCS: 45380; 45385 ==

== ENCOUNTER 2024-11-30 10:11 | Outpatient (REF) | payer OTHER, MEDICAID, SELFPAY ==
--- NOTE | ~2024-11-30 | MM_ITS ---
EXAMINATION: MM SCREENING DIGITAL BREAST TOMOSYNTHESIS, BILATERAL CLINICAL INFORMATION: Screening. Asymptomatic. COMPARISON: Mammography: Comparison is made with relevant avialable priors. TECHNIQUE: Digital mammography is performed in craniocaudal and mediolateral oblique views along with computer-aided detection (CAD). Digital breast tomosynthesis is performed in implant-displaced craniocaudal and implant-displaced mediolateral oblique views along with computer-aided detection (CAD). FINDINGS: The breasts are heterogeneously dense, which may obscure small masses (ACR BI-RADS breast composition Category c). Bilateral retropectoral silicone implants are normal appearing. There are no significant masses, abnormal calcifications, or other abnormalities. MM/MM tomosynthesis screen imp BI IMPRESSION: There are no significant changes from prior study. ASSESSMENT: BI-RADS BI-RADS 2 - Benign Findings RECOMMENDATION: Routine annual mammography screening. 1 year F/U This patient's information was entered into a reminder system with a target due date for their next mammogram. Electronically signed by: Ophelia De Souza DO 11/30/2024 03:00 PM EDT
--- OUTSIDE RECORDS SUMMARY | 2024-11-30 11:39 | XMS_ITS | Clinical Summary ---
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
== END 2024-11-30 10:12 | disposition home or self-care (01) ==
LOC: HO.MAMMO 10:11
PROVIDERS: PCP Internal Medicine; Visit Provider Internal Medicine
DX: Z12.31 Encounter for screening mammogram for malignant neoplasm of breast (principal)
CPT/HCPCS: 77063; 77067

== ENCOUNTER → 2024-11-30 10:45 | Outpatient (BNV) | payer OTHER, MEDICAID, SELFPAY | PROVIDERS: PCP Internal Medicine; Visit Provider Internal Medicine | DX: Z12.31 Encounter for screening mammogram for malignant neoplasm of breast (principal) | CPT/HCPCS: 77063; 77067 ==

== ENCOUNTER 2025-02-28 08:28 | Outpatient (REF) | payer OTHER, MEDICAID, SELFPAY ==
[2025-02-28 13:27] LABS: MANUAL DIFF FLAG NO
[2025-02-28 13:34] LABS: Hematocrit 44.9 % (37.0-47.0); Hemoglobin 15.1 g/dl (12.0-16.0); Imm Gran Abs Auto 0.00 X10*3/uL (0.00-0.03); Imm Gran Pct Auto 0.0 % (0.0-0.4); Lymphocytes Absolute Auto 1.9 X10*3/uL (1.2-4.9); Mean Corpuscular HGB Conc 33.6 g/dl (31.0-35.0); Mean Corpuscular Hemoglobin 29.7 pg (27.0-33.0); Mean Corpuscular Volume 88.2 fL (80.0-98.0); NRBC Abs Auto 0.000 X10*3/uL (0.0-0.012); NRBC Pct Auto 0.0 /100WBC (0.0-0.2); Platelet Count 244 X10*3/uL (160-400); Red Blood Count 5.09 X10*6/uL (4.20-5.50); White Blood Count 5.6 X10*3/uL (4.8-10.8)
[2025-02-28 14:17] LABS: Alanine Aminotransferase 14 U/L (0-31); Anion Gap 9 (12-20); Aspartate Amino Transferase 23 U/L (5-31); Blood Urea Nitrogen 14 mg/dL (9-16); Calcium 9.2 mg/dL (8.4-10.2); Carbon Dioxide 30 mmol/L (22-29); Chloride 106 mmol/L (96-108); Cholesterol 305 mg/dL (<200); Estimated Glomerular Filt Rate > 60; HDL Cholesterol 71 mg/dL (>40); Potassium 3.9 mmol/L (3.3-5.1); Sodium 141 mmol/L (135-145); Triglycerides 116 mg/dL (<150)
[2025-02-28 14:30] LABS: Folate 8.8 ng/mL (> or = 4.0); Vitamin B12 417 pg/mL (200-900)
== END 2025-02-28 08:29 | disposition home or self-care (01) ==
LOC: HO.HMGCLDS 08:28
PROVIDERS: PCP Internal Medicine; Visit Provider Internal Medicine
DX: E78.5 Hyperlipidemia, unspecified (principal); R73.01 Impaired fasting glucose; Z00.01 Encounter for general adult medical examination with abnormal findings; R12 Heartburn; Z13.31 Encounter for screening for depression; Z13.39 Encounter for screening examination for other mental health and behavioral disorders; F33.0 Major depressive disorder, recurrent, mild; F17.200 Nicotine dependence, unspecified, uncomplicated
CPT/HCPCS: 36415; 80048; 80061; 82306; 82607; 82746; 83036; 84443; 84450; 84460; 85025; 96127

== ENCOUNTER 2025-02-28 08:28 | Outpatient (AMB) | payer OTHER, MEDICAID, SELFPAY ==
--- NOTE | 2025-02-28 08:36 | A.OFFPC_ITS ---
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 She goes to [facility] for her routine Pap and pelvic exam, with last Pap smear done 06/21/2022 which came back negative for intraepithelial lesion or malignancy, negative HPV. Last screening mammogram was done 11/30/2024 with benign findings, and she had a screening colonoscopy done 10/18/2024, done by Dr. Cevallos with a sessile serrated polyp removed and a hyperplastic polyp removed. Due for repeat colonoscopy again in 3 years. She is a current smoker and finds it difficult to quit. She is please still having regular menses with dysmenorrhea. The patient reports mood swings, anhedonia, usually just before her menstrual cycle. Has been having intermittent episodes of heartburn symptoms usually food related, and at night. She already received a flu shot and completed the primary two-shot COVID-19 vaccine series, does not want to get the booster. Already received her pneum onia vaccine, with the next one due at age 64, and is due for the second Shingrix. dose. [facility] Medical History (Updated 03/06/25 @ 12:21 by Yoselin Sarmiento MD) Depression Heartburn Smoker unmotivated to quit Impaired fasting glucose Dyslipidemia Family history of brain aneurysm Insomnia Dysmenorrhea [place] of [place] Surgical History Hx of breast augmentation History of lumpectomy of right breast Family History Father HTN (hypertension) Mother Myocardial infarction Other Family history of brain aneurysm Social History Housing: House Alcohol intake: never Patient Tobacco Use Status: Current everyday Tobacco user Tobacco use type: Cigarette Cigarettes Per Day: 5 Years Smoked: 7 e-Cigarette/Vaping Use: Never Used Second Hand Smoke Exposure: No service: No Current occupational status: employed Cognitive needs: No Hearing needs: No Vision needs: No Questionnaire PHQ-9 Over the last 2 weeks, how often have you been bothered by any of the following problems? 1. Little interest or pleasure in doing things: nearly every day 2. Feeling down, depressed, or hopeless: several days 3. Trouble falling or staying asleep, or sleeping too much: nearly every day 4. Feeling tired or having little energy: nearly every day 5. Poor appetite or overeating: several days 6. Feeling bad about yourself - or that you are a failure or have let yourself or your family down: not at all 7. Trouble concentrating on things, such as reading the newspaper or watching television: not at all 8. Moving or speaking so slowly that other people could have noticed. Or the opposite - being so fidgety or restless that you have been moving around a lot more than usual: not at all 9. Thoughts that you would be better off or of hurting yourself in some way: not at all Total score: 11 Depression Screening Interpretation: Positive (Started on sertraline 50 mg daily declined referral for counseling) Depression Screening Follow-up: New Medication prescribed Depression Screening Done: Yes 01892 - PHQ-9 Billing: Yes Source: Developed by Drs. Nabil Galvin, Jacquie Ruiz, Ramesh Oswald and colleagues, with an educational vy from [employer]. Thrive Questionnaire Date Thrive assessed: 02/21/25 I am a: Patient What is your living situation today?: I choose not to answer this question Within the past 12 months, did the food you bought not last and you didn't have the money to get more?: I choose not to answer this question Within the past 12 months, did you worry whether your food would run out before you got money to buy more?: I choose not to answer this question Do you have trouble paying for medicines?: I choose not to answer this question Do you have trouble getting transportation to medical appointments?: I choose not to answer this question Do you have trouble paying your heating and electricity bill?: I choose not to answer this question Do you have trouble taking care of your child, family member or friend?: I choose not to answer this question Do you have trouble with day-to-day activities such as bathing, preparing meals, shopping, managing finances, etc.?: I choose not to answer this question Are you currently unemployed and looking for a job?: No Are you interested in more education?: I choose not to answer this question Please select the resources that you would like help with: None Currently or been in a relationship where the following occur: I choose not to answer THRIVE Score: 0 AUDIT C Alcohol Use Questionnaire (AUDIT-C) 2. How many drinks containing alcohol do you have on a typical day when you are drinking?: 1 or 2 3. How often do you have six or more drinks on one occasion?: Monthly Total Score: 2 Score Reviewed/Action Taken: Yes MARGARET-7 AMB Questionnaire MARGARET-7 Date MARGARET - 7 assessed: 02/28/25 Feeling nervous, anxious, or on edge: 0 = Not at all Not being able to stop or control worryin = Not at all Worrying too much about different things: 0 = Not at all Trouble relaxin = Not at all Being so restless that it is hard to sit still: 0 = Not at all Becoming easily annoyed or irritable: 0 = Not at all Feeling afraid as if something awful might happen: 0 = Not at all Total MARGARET-7 score (0-4 normal; 5-9 mild; 10-14 moderate; 15-21 severe): 0 Source: Developed by Drs. Nabil Galvin, Jacquie Ruiz, Ramesh Oswald and colleagues, with an educational vy from [employer]. MARGARET-7 Assessment Billing MARGARET-7 Assessment Tool: MARGARET-7 Assessment 55780 Review of Systems Const Denies body aches, Denies fever(s), Denies poor appetite and Denies weakness Eyes Details: Goes to [facility] for her regular eye exam Denies change in vision ENT Reports no additional complaints Card Denies chest pain, Denies rapid heart rate, Denies lightheadedness and Denies dyspnea Resp Reports no additional complaints and Denies dyspnea GI Reports as per HPI, Denies melena, Denies hematochezia, Denies change in bowel habits, Denies dyspepsia and Denies nausea Denies urinary frequency, Denies dysuria, Denies urinary incontinence and Denies vaginal discharge Musc Denies arthralgias, Denies joint swelling, Denies numbness and Reports stiffness Skin/Breast Denies breast pain, Denies breast mass and Denies rash Neuro Denies focal weakness, Denies numbness and Denies weakness Psych Reports as per HPI Endo Reports no additional complaints Sudheer/Lymph Denies easy bleeding and Denies easy bruising Aller/Immun Reports no additional complaints Physical exam (Primary Care) Vital Signs: Last Vital Signs Temp 97.8 F 02/28/25 08:38 Pulse 68 02/28/25 08:38 Resp 16 02/28/25 08:38 BP 92/60 02/28/25 08:38 Pulse Ox 98 02/28/25 08:38 Oxygen Delivery Method Room Air 02/28/25 08:38 BMI result Body Mass Index 23.9 Tobacco/Smoking Status: Tobacco use Status Tobacco use date assessed 02/28/25 02/28/25 08:38 Patient Tobacco Use Status Current everyday Tobacco 02/28/25 08:36 Tobacco use type Cigarette 02/28/25 08:36 e-Cigarette/Vaping Use Never Used 02/28/25 08:36 PHQ-9: PHQ-9 Score PHQ-9: Total score 11 02/28/25 09:26 Depression Screening Interpretation: Positive (Started on sertraline 50 mg daily declined referral for counseling) Depression Screening Follow-up: New Medication prescribed Thrive Assessment: Date of Thrive Assessment Date Thrive assessed 02/21/25 02/28/25 08:36 Currently or been in a relationship where the following occur: I choose not to answer Const Other: Alert oriented x3, no acute distress noted ambulatory with normal gait General: comfortable, no acute distress, alert and awake Nutritional Appearance: average body habitus Orientation/consciousness: patient oriented x3 HENMT Head: Yes normocephalic and Yes atraumatic Face and sinus: Yes face symmetric Eyes General: appearance normal, both eyes and all related structures Neck Neck: Yes full ROM, Yes no lymphadenopathy and Yes no meningeal signs Chest Chest palpation & inspection: normal inspection of the chest Breast/axilla palpation: normal palpation of the breasts Resp Auscultation: clear to auscultation bilaterally Cardio Other: S1-S2 present regular rate and rhythm GI Palpation (GI): Soft to palpation, Firmness to palpation present (GI), nontender, no guarding and no masses General: Yes deferred (Sees Dr. Chauhan her OBGYN who completed her Pap this year) Back/Spine/Pelvis Back: No back tenderness Skin General skin exam: no rashes or lesions noted Neuro General: patient oriented x3, gait normal, moves all extremities, Normal light touch and pain sensation, no meningeal signs, no focal motor deficits and CN's II-XI intact bilaterally Extrem General: Yes full ROM, Yes no joint enlargement and Yes no pedal edema Psych Appearance: grossly normal and well kempt Mental Status: mental status grossly normal Speech and movement: Normal speech and movement present Affect: normal affect Thought process: Normal thought process present Coding Level of Care Code Est Pt Prev Care 40-64y(41491) Diagnoses Annual visit for general adult medical examination with abnormal findings Z00.01 Mild episode of recurrent major depressive disorder F33.0 Depression Type: major depressive disorder Major depression recurrence: recurrent Active/Remission status: currently active Major depression episode severity: mild Dyslipidemia E78.5 Impaired fasting glucose R73.01 Smoker unmotivated to quit F17.200 Heartburn R12 Additional Codes MARGARET-7 Assessment Billing - MRAGARET-7 Assessment Tool: MARGARET-7 Assessment 79065 ([id number]) PHQ-9 - 53228 - PHQ-9 Billing: Yes ([id number]) Assessment & Plan Assessment & Plan (1) Annual visit for general adult medical examination with abnormal findings: Code(s): Z00.01 - Encounter for general adult medical examination with abnormal findings Category: Medical Plan: Will check appropriate labs. Recommended dental visit every 6 months and continue with regular eye exams, at least every 2 years. Take adequate calcium in diet and vitamin-D 3 at 2000 IU per cap once a day, in addition to weight- bearing exercises to help maintain good muscle tone and weight control. Instructed to do self-breast exam, and continue to get yearly mammogram, currently up-to-date.. Up-to-date with her screening colonoscopy. She already received a flu shot and completed the primary two-shot COVID-19 vaccine series, does not want to get the booster. Already received her pneumonia vaccine, with the next one due at age 64, and is due for the second Shingrix. dose. (2) Depression: Code(s): F32.A - Depression, unspecified Category: Medical Qualifiers: Depression Type: major depressive disorder Major depression recurrence: recurrent Active/Remission status: currently active Major depression episode severity: mild Qualified Code(s): F33.0 - Major depressive disorder, recurrent, mild Plan: The patient reports low mood and agreed to a trial of medication. Sertraline will be initiated at 25 mg daily for one week, then increased to 50 mg daily. The patient was advised that the medication must be taken daily, not to be stopped abruptly, and to avoid alcohol. A telehealth follow-up is scheduled in four weeks to monitor response. (3) Dyslipidemia: Code(s): E78.5 - Hyperlipidemia, unspecified Category: Medical Plan: Fasting lipid panel ordered today. We reinforced importance of following a low- cholesterol diet (4) Impaired fasting glucose: Code(s): R73.01 - Impaired fasting glucose Category: Medical Plan: Your previous fasting blood sugars were elevated above 100 mg/dL. Impaired glucose metabolism increases the risk for developing diabetes mellitus type 2, as well as heart attack and stroke later on. Lifestyle changes that promotes weight loss, healthy eating habits, and regular exercise are important, and can prevent the progression to diabetes (5) Smoker unmotivated to quit: Code(s): F17.200 - Nicotine dependence, unspecified, uncomplicated Category: Social Hx Plan: Patient strongly advised to stop smoking, as smoking damages blood vessels, degenerative of joints and spine, damage to lungs and heart., predisposes to developing certain cancers like lung, breast, bladder, colon. Recommended to try decreasing cigarette use by 1-2 cigarettes a day. Advised to monitor what triggers are for smoking so that this can be discussed on the next office visit. We can discuss different options to quit smoking when ready. (6) Heartburn: Code(s): R12 - Heartburn Category: Medical Plan: Prescription sent for famotidine 40 mg taken once a day. Avoidance of triggers for heartburn, do not lie down right away after eating. Follow-up if no improvement of symptoms noted after taking famotidine for 1 month. smoking cessation strongly advised Orders: Orders Complete Blood Count Auto Diff 02/28/25 E78.5 - Hyperlipidemia, unspecified, R12 - Heartburn, R53.83 - Other fatigue, R73.01 - Impaired fasting glucose, Z00.01 - Encounter for general adult medical examination with abnormal findings Basic Metabolic Panel Fasting 02/28/25 E78.5 - Hyperlipidemia, unspecified, R12 - Heartburn, R53.83 - Other fatigue, R73.01 - Impaired fasting glucose, Z00.01 - Encounter for general adult medical examination with abnormal findings Alanine Aminotransferase 02/28/25 E78.5 - Hyperlipidemia, unspecified, R12 - Heartburn, R53.83 - Other fatigue, R73.01 - Impaired fasting glucose, Z00.01 - Encounter for general adult medical examination with abnormal findings Lipid Panel 02/28/25 E78.5 - Hyperlipidemia, unspecified, R12 - Heartburn, R53.83 - Other fatigue, R73.01 - Impaired fasting glucose, Z00.01 - Encounter for general adult medical examination with abnormal findings Vitamin D 25-OH Total 02/28/25 E78.5 - Hyperlipidemia, unspecified, R12 - Heartburn, R53.83 - Other fatigue, R73.01 - Impaired fasting glucose, Z00.01 - Encounter for general adult medical examination with abnormal findings Vitamin B12 and Folate 02/28/25 E78.5 - Hyperlipidemia, unspecified, R12 - H eartburn, R53.83 - Other fatigue, R73.01 - Impaired fasting glucose, Z00.01 - Encounter for general adult medical examination with abnormal findings Aspartate Amino Transferase 02/28/25 E78.5 - Hyperlipidemia, unspecified, R12 - Heartburn, R53.83 - Other fatigue, R73.01 - Impaired fasting glucose, Z00.01 - Encounter for general adult medical examination with abnormal findings Hemoglobin A1c 02/28/25 E78.5 - Hyperlipidemia, unspecified, R12 - Heartburn, R53.83 - Other fatigue, R73.01 - Impaired fasting glucose, Z00.01 - Encounter for general adult medical examination with abnormal findings TSH reflex Free T4 02/28/25 E78.5 - Hyperlipidemia, unspecified, R12 - Heartburn, R53.83 - Other fatigue, R73.01 - Impaired fasting glucose, Z00.01 - Encounter for general adult medical examination with abnormal findings Medications: New famotidine 40 mg PO DAILY 30 tabs 3RF R12 - Heartburn sertraline 50 mg PO DAILY 30 tabs 1RF
[2025-02-28 08:38] VITALS: BP 92/60; PULSE 68; RESP 16; TEMP 36.6; O2SAT 98; BMI 23.9
--- OUTSIDE RECORDS SUMMARY | 2025-02-28 08:46 | XMS_ITS | Patient Health Record ---
Author Organization [facility] Address [address] [place] [address] Care Team Providers Care Neonatal Social Worker Name Role Phone DREAD KERR MD Primary Care Provider Rosita blunt Kasie Chauhanli Unavailable [phone] Allergies No Known Allergies Results Component Value Reference Range Notes Urinalysis Reviewed date:07/07/2024 03:19:26 PM Interpretation: Performing Lab: Notes/Report: PH 5..0 PROTEIN Neg GLUCOSE Neg BLOOD Neg [id number] IGP No Culture 30 Plus Reviewed date:07/09/2024 04:25:32 PM Interpretation: Performing Lab:[facility] [place], [address], [address], [place], Phone - [phone], Director - [facility] Notes/Report: No. of containers..01 ThinPrep Vial Dates / Results....06/26/23 NIL, Neg HPV +HPV 2018, COLP NEG LMP / Prev Treat...[id number];[facility] / [facility] Source.............Cervix;Vagina Clinical Information:Vaginal/Cervical, LMP: 310/22, Hx of ASCUS and + HP V 2019, Co DIAGNOSIS: NEGATIVE FOR IN TRAEPITHELIAL LESION OR MALIGNANCY. Specimen adequacy: Satisfactory for evaluation. Endocervical and/or squamous metaplastic cells (endocervical component) are present. Clinician provided ICD10: Z0 1.419 Performed by: Collin davis, Pipe Machine Operator ([facility]) . . Note: The Pap [...] Lab:[facility] [place], [address], [address], [place], Phone - [phone], Director - [facility] Notes/Report: Clinical Information:Vaginal/Cervical, LMP: 05/30 10/22, Hx of ASCUS and + HP V 2019, Co Source.............Cervix;Vagina LMP / Prev Treat...[id number];[facility] / [facility] Dates / Results....06/26/23 NIL, Neg HPV +HPV 2018, COLP NEG No. of containers..01 ThinPrep Vial Reason For Referral No Information Medications Medication SIG (Take, Route, Frequency, Duration) Notes Start Date End Date Status Norethindrone Acetate 5 MG 1 tablet Oral ly Once a day for 10 days now and repeat if no menses for 3 months or longer; Duration: 90 days 07/07/2024 Active Social History Tobacco [...] test positive, high risk on vaginal specimen ([id number]) Cervical high risk human papillomavirus (HPV) DNA test positive (R87.810) Active confirmed Problem Gynecological examination normal ([id number]) Encounter for gynecological examination (general) (routine) without abnormal findings (Z01.419) Active confirmed Problem Amenorrhea (13060906) Amenorrhea, unspecified (N91.2) Active confirmed Problem Unspecified menopausal and perimenopausal disorder (N95.9) Active confirmed Problem Dyspareunia (04553255) Unspecified dyspareunia (N94.10) Active confirmed Vital Signs Temperature 97.9 degrees Fahrenheit 07/07/2024 Blood pressure diastolic 78 mm Hg 07/07/2024 Height 60 in 07/07/2024 Blood pressure systolic 108 mm Hg 07/07/2024 Weight 133 lbs 07/07/2024 BMI 25.97 kg/m2 07/07/2024 Encounters Encounter Location Date Provider Diagnosis [address] [place] [address] 07/07/2024 Gricelda Chauhan Encounter for gynecological examination [...] GENERATION 04/03/2018 Next Appt Details Provider Name:Gricelda Lewis rebekamichael, 07/13/2025 03:00:00 PM, [address], [address], [place], [address], Insurance Providers Payer Name Payer Address Payer Phone Subscriber Number Group Number Insured Name Patient Relationship to Insured Coverage Start Date Coverage End Date [facility] [address] [place] [address] [phone] [id number] JIMMY PEOPLES Self - patient is [...]
--- OUTSIDE RECORDS SUMMARY | 2025-02-28 08:46 | XMS_ITS | Clinical Summary ---
Author Organization [facility] it Address [address] [place] [address] Care Team Providers Care Patient Care Provider Name Role Phone Unavailable Primary Care Provider [...] Cervical Cancer Screening: P ap Smear 1995 Pneumococcal Vaccine: 50+ Ye ars (1 of 1 - PCV) 02/19/2024 Zoster Vaccines (1 of 2) 02/19/2024 Depression Screening 03/31/2024 COVID-19 Vaccine (1 - 2024-2 6 season) 2024 Influenza Vaccine (#1) 2024 RSV Immunization Adult Patie nts (1 - 1-dose 75+ series) 2049 HIB Vaccines Aged Out No longer eligi [...]
== END 2025-02-28 09:48 | disposition home or self-care (01) ==
LOC: HO.HMCC 08:29
PROVIDERS: PCP Internal Medicine; Visit Provider Internal Medicine
DX: Z00.01 Encounter for general adult medical examination with abnormal findings (principal); F33.0 Major depressive disorder, recurrent, mild; E78.5 Hyperlipidemia, unspecified; R73.01 Impaired fasting glucose; F17.200 Nicotine dependence, unspecified, uncomplicated; R12 Heartburn